=== PATIENT | female | born 1985 | race American Indian/Alaskan Native ===

== ENCOUNTER 2019-12-08 15:49 | Emergency (ER) | payer SELFPAY ==
[2019-12-08] MEDS ORDERED: SODIUM CHLORIDE 0.9% 1000 ML 1,000 ML IV ONE (16:34)
[2019-12-08] MEDS ORDERED: HYDROmorphone 1 MG/1 ML INJ IV ONE ×2 (16:34→18:06)
[2019-12-08] MEDS ORDERED: ONDANSETRON 4 MG/2 ML INJ IV ONE ×2 (16:34→18:06)
--- NOTE | 2019-12-08 16:34 | Emergency Department Report ---
ED Abdominal Pain HPI - General Chief Complaint: Abdominal Pain Stated Complaint: ABD PAIN/NAUSEA/VOMITING/DIARRHEA Time Seen by Provider: 12/08/19 16:11 Source: patient, EMS Mode of arrival: Stretcher Limitations: No Limitations - History of Present Illness Initial Comments: 34-year-old female with history of asthma, chronic pancreatitis, colitis, pres ents to ED with 5-day history of upper abdominal pain, vomiting, and diarrhea. Patient states this feels like an exacerbation of her chronic pancreatitis. Patient is from [place], here in [facility]. Patient states she hospitalization for pancreatitis and was discharged on October 28. Patient states she has been taking Zofran, Reglan, Bentyl, Carafate for her symptoms over the last 5 days, without relief. She denies any fever, cough, shortness of breath, known exposure to anyone who was tested positive for COVID-19. COVID-19 test done on 11/19/2019 was negative. Patient denies any alcohol use, states that she and her doctors are unsure of the cause of her pancreatitis. MD Complaint: abdominal pain -: days(s) (5) Location: LUQ, RUQ, epigastric Radiation: none Migration to: no migration Severity: moderate Quality: aching, sharp Consistency: constant Improves With: nothing Worsens With: eating Associated Symptoms: nausea, vomiting, diarrhea. denies: fever - Related Data Previous Rx's Medication Instructions Recorded Last Taken Type Ondansetron [Zofran Odt] 4 mg PO Q8HR PRN #20 tab.rapdis 12/08/19 Unknown Rx Promethazine [Phenergan TAB] 25 mg PO Q6HR PRN #20 tab 12/08/19 Unknown Rx traMADoL [Ultram] 50 mg PO Q6HR PRN #7 tablet 12/08/19 Unknown Rx Allergies Allergy/AdvReac Type Severity Reaction Status Date / Time acetaminophen [From Fioricet] Allergy Unknown Verified 12/08/19 18:37 butalbital [From Fioricet] Allergy Unknown Verified 12/08/19 18:37 caffeine [From Fioricet] Allergy Unknown Verified 12/08/19 18:37 ibuprofen Allergy Unknown Verified 12/08/19 18:37 ketorolac [From Toradol] Allergy Unknown Verified 12/08/19 18:37 prednisone Allergy Unknown Verified 12/08/19 18:37 sumatriptan [From Imitrex] Allergy Unknown Verified 12/08/19 18:37 ED Review of Systems ROS: Stated complaint: ABD PAIN/NAUSEA/VOMITING/DIARRHEA Other details as noted in HPI Comment: All other systems reviewed and negative Constitutional: denies: chills, fever Respiratory: denies: cough, shortness of breath Gastrointestinal: abdominal pain, nausea, vomiting, diarrhea ED Past Medical Hx - Past Medical History Previous Medical History?: Yes Hx Headaches / Migraines: Yes Hx Asthma: Yes Additional medical history: colitis. pancreatitis. ovarian cycts. c-diff (not active) - Surgical History Past Surgical History?: Yes Hx Cholecystectomy: Yes Additional Surgical History: ablasion. partial hysterectomy. tonsils and adnoids removed. right ovarian cyst - Social History Smoking Status: Current Every Day Smoker Substance Use Type: None - Medications Home Medications: Home Medications Medication Instructions Recorded Confirmed Last Taken Type Ondansetron [Zofran Odt] 4 mg PO Q8HR PRN #20 tab.rapdis 12/08/19 Unknown Rx Promethazine [Phenergan TAB] 25 mg PO Q6HR PRN #20 tab 12/08/19 Unknown Rx traMADoL [Ultram] 50 mg PO Q6HR PRN #7 tablet 12/08/19 Unknown Rx ED Physical Exam - General Limitations: No Limitations General appearance: alert, in no apparent distress - Head Head exam: Present: atraumatic, normocephalic - Eye Eye exam: Present: normal appearance, EOMI - ENT ENT exam: Present: mucous membranes moist - Neck Neck exam: Present: normal inspection - Respiratory Respiratory exam: Present: normal lung sounds bilaterally. Absent: respiratory distress - Cardiovascular Cardiovascular Exam: Present: regular rate, normal rhythm - GI/Abdominal GI/Abdominal exam: Present: soft, tenderness (RUQ, epigastric, LUQ). Absent: distended - Extremities Exam Extremities exam: Present: normal inspection - Neurological Exam Neurological exam: Present: alert, oriented X3 - Psychiatric Psychiatric exam: Present: normal affect, normal mood - Skin Skin exam: Present: warm, dry, intact, normal color ED Course Vital Signs 12/08/19 12/08/19 12/08/19 15:52 15:58 16:00 Temperature 98.3 F Pulse Rate 88 87 Respiratory 9 L 11 L Rate Blood Pressure 120/87 120/87 O2 Sat by Pulse 98 100 99 Oximetry 10/11/20 10/11/20 10/11/20 16:05 16:30 17:00 Temperature Pulse Rate 87 90 Respiratory 14 14 11 L Rate Blood Pressure 136/85 139/79 O2 Sat by Pulse 98 98 94 Oximetry 12/08/19 12/08/19 12/08/19 17:30 18:00 18:30 Temperature Pulse Rate 70 83 Respiratory 7 L 10 L Rate Blood Pressure 138/82 128/79 123/72 O2 Sat by Pulse 98 100 100 Oximetry 12/08/19 12/08/19 19:00 19:30 Temperature Pulse Rate 78 78 Respiratory 9 L 9 L Rate Blood Pressure 128/78 127/72 O2 Sat by Pulse 96 Oximetry ED Medical Decision Making - Lab Data Result diagrams: 12/08/19 16:20 12/08/19 16:20 - Radiology Data Radiology results: report reviewed, image reviewed - Medical Decision Making 34-year-old female presents to ED with abdominal pain, vomiting, diarrhea. Labs and CT scan essentially unremarkable, with CT scan showing some mild gastritis. Vital signs are stable. Patient feeling much better following IV fluids and medication. Will discharge home at this time. Outpatient follow-up advised. Return precautions given. - Differential Diagnosis Colitis, pancreatitis, gastroenteritis Critical care attestation.: If time is entered above; I have spent that time in minutes in the direct care of this critically ill patient, excluding procedure time. ED Disposition Clinical Impression: Acute gastroenteritis Disposition: DC-01 TO HOME OR SELFCARE Is pt being admited?: No Condition: Stable Instructions: Gastroenteritis (ED), Abdominal Pain (ED) Prescriptions: Promethazine [Phenergan TAB] 25 mg PO Q6HR PRN #20 tab PRN Reason: Nausea traMADoL [Ultram] 50 mg PO Q6HR PRN #7 tablet PRN Reason: Pain Ondansetron [Zofran Odt] 4 mg PO Q8HR PRN #20 tab.rapdis PRN Reason: Vomiting Referrals: PRIMARY CARE, [Primary Care Provider] - 3-5 Days [facility] [Provider Group] - as needed Time of Disposition: 19:10
[2019-12-08 16:46] LABS: Basophils % (Auto) 0.5 % (0.0-1.8); Eosinophils # (Auto) 0.3 K/mm3 (0.0-0.4); Eosinophils % (Auto) 3.9 % (0.0-4.3); Hemoglobin 13.1 gm/dl (10.1-14.3); Lymphocytes # (Auto) 2.6 K/mm3 (1.2-5.4); Lymphocytes % (Auto) 31.9 % (13.4-35.0); Mean Corpuscular HGB Conc 34 % (30-34); Mean Corpuscular Volume 87 fl (79-97); Monocytes # (Auto) 0.7 K/mm3 (0.0-0.8); Monocytes % (Auto) 8.7 % (0.0-7.3); Platelet Count 305 K/mm3 (140-440); Red Blood Count 4.46 M/mm3 (3.65-5.03); Red Cell Distribution Width 13.5 % (13.2-15.2)
[2019-12-08 17:02] LABS: Alanine Aminotransferase 20 units/L (7-56); Albumin 4.3 g/dL (3.9-5); BUN/Creatinine Ratio 12; Blood Urea Nitrogen 11 mg/dL (7-17); Calcium 9.1 mg/dL (8.4-10.2); Hemolysis Index 7
[2019-12-08 18:33] LABS: Bacteria,Urine 1+ /HPF (Negative); Bilirubin,Urine NEG (Negative); Blood,Urine SM (Negative); Color,Urine Yellow (Yellow); Mucus,Urine 1+ /HPF; Protein,Urine <15 mg/dL mg/dL (Negative); Urobilinogen,Urine < 2.0 mg/dL (<2.0)
[2019-12-08] MEDS ORDERED: LOPERAMIDE 2 MG CAP PO ONE (18:34)
[2019-12-08] MEDS ORDERED: LOPERAMIDE 2 MG CAP ONE (18:35)
--- NOTE | 2019-12-08 18:45 | Cat Scan Report ---
CT ABDOMEN AND PELVIS WITH IV CONTRAST INDICATION: Diffuse abdominal pain for the past 5 days COMPARISON: None available. TECHNIQUE: Axial CT images were obtained through the abdomen and pelvis after 100 mL IV contrast. All CT scans a t this location are performed using CT dose reduction for ALARA by means of automated exposure contro l. FINDINGS -- ABDOMEN: Lung Bases: No acute abnormality. Liver: Normal. Gallbladder: Removed. Bile Ducts: Normal. Pancreas: Normal. Spleen: Normal. Adrenals: Normal. Right Kidney and Proximal Ureter: Normal. Left Kidney and Proximal Ureter: Normal. Stomach and Bowel: Question mild increased prominence of the distal gastric mucosal folds.. Lymph Nodes: No significant adenopathy. Aorta: No significant abnormality. IVC: Normal. Additional Findings: None. FINDINGS -- PELVIS: Urinary Bladder and Distal Ureters: Normal. Reproductive Organs: No acute abnormality. Appendix: Normal. Bowel: No acute abnormality. Free Fluid: None. Lymph Nodes: No significant adenopathy. Additional Findings: None. Skeletal System: No acute abnormality. IMPRESSION: 1. Question mild gastritis. Otherwise, no acute process in the abdomen or pelvis. Signer Name: Ramon Robles MD Signed: 12/08/2019 6:40 PM Workstation Name: [id number]
[2019-12-08 19:39] VITALS: BP 127/72
== END 2019-12-08 19:50 | disposition home or self-care (01) ==
LOC: ED 15:49
DX: K52.9 Noninfective gastroenteritis and colitis, unspecified (principal); F17.200 Nicotine dependence, unspecified, uncomplicated; J45.909 Unspecified asthma, uncomplicated; G43.909 Migraine, unspecified, not intractable, without status migrainosus; Z79.899 Other long term (current) drug therapy; Z88.8 Allergy status to other drugs, medicaments and biological substances; Z88.6 Allergy status to analgesic agent; Z90.710 Acquired absence of both cervix and uterus; Z98.890 Other specified postprocedural states; Z90.49 Acquired absence of other specified parts of digestive tract
CPT/HCPCS: 36415; 74177; 80053; 81001; 83690; 84703; 85025; 96361; 96374; 96375; 96376; 99284; J1170; J2405; J7030; Q9967

== ENCOUNTER 2019-12-30 11:15 | Emergency (ER) | payer MEDICAID ==
[2019-12-30 11:21] VITALS: BP 132/76
--- NOTE | 2019-12-30 11:29 | Emergency Department Report ---
Blank Doc - Documentation Documentation: 34-year-old female that presents with abd pain with n/v. This initial assessment/diagnostic orders/clinical plan/treatment(s) is/are subject to change based on patient's health status, clinical progression and re- assessment by fellow clinical providers in the ED. Further treatment and workup at subsequent clinical providers discretion. Patient/guardians urged not to elope from the ED as their condition may be serious if not clinically assessed and managed. Initial orders include: 1- Patient sent to [facility] for further evaluation and treatment 2- labs 3- UA
[2019-12-30 12:28] LABS: Basophils % (Auto) 0.4 % (0.0-1.8); Eosinophils # (Auto) 0.3 K/mm3 (0.0-0.4); Eosinophils % (Auto) 3.7 % (0.0-4.3); Hematocrit 41.1 % (30.3-42.9); Hemoglobin 13.3 gm/dl (10.1-14.3); Lymphocytes # (Auto) 2.7 K/mm3 (1.2-5.4); Lymphocytes % (Auto) 37.3 % (13.4-35.0); Mean Corpuscular HGB Conc 32 % (30-34); Mean Corpuscular Volume 87 fl (79-97); Monocytes # (Auto) 0.4 K/mm3 (0.0-0.8); Monocytes % (Auto) 5.3 % (0.0-7.3); Platelet Count 314 K/mm3 (140-440); Red Blood Count 4.71 M/mm3 (3.65-5.03); Red Cell Distribution Width 13.6 % (13.2-15.2)
[2019-12-30 12:29] LABS: Alanine Aminotransferase 18 units/L (7-56); Albumin 4.5 g/dL (3.9-5); BUN/Creatinine Ratio 6; Blood Urea Nitrogen 6 mg/dL (7-17); Calcium 9.7 mg/dL (8.4-10.2); Hemolysis Index 0
[2019-12-30 14:07] LABS: Bilirubin,Urine NEG (Negative); Blood,Urine MOD (Negative); Color,Urine Yellow (Yellow); Mucus,Urine FEW /HPF; Protein,Urine <15 mg/dL mg/dL (Negative); Urobilinogen,Urine < 2.0 mg/dL (<2.0)
--- NOTE | 2019-12-30 14:17 | Emergency Department Report ---
ED Abdominal Pain HPI - General Chief Complaint: Abdominal Pain Stated Complaint: ABD PAIN/VOMITING Time Seen by Provider: 12/30/19 11:28 Source: patient Mode of arrival: Ambulatory Limitations: No Limitations - History of Present Illness Initial Comments: 34-year-old female presents to ED with complaint of 2-day history of abdominal pain. Patient reports associated nausea and vomiting. Patient reports history of pancreatitis and colitis. Patient states pain is located in diffuse abdomen. Patient was seen for similar complaints last month, patient states pain located in the same area as before. Patient states she has been taking tramadol at home for pain. She denies any fever or urinary symptoms. MD Complaint: abdominal pain -: days(s) (2) Location: diffuse Radiation: none Migration to: no migration Severity: moderate Quality: cramping Consistency: constant Improves With: nothing Worsens With: nothing Associated Symptoms: nausea, vomiting. denies: fever, dysuria - Related Data Previous Rx's Medication Instructions Recorded Last Taken Type Ondansetron [Zofran Odt] 4 mg PO Q8HR PRN #20 tab.rapdis 12/08/19 Unknown Rx Promethazine [Phenergan TAB] 25 mg PO Q6HR PRN #20 tab 12/08/19 Unknown Rx traMADoL [Ultram] 50 mg PO Q6HR PRN #7 tablet 12/08/19 Unknown Rx Dicyclomine [Bentyl] 20 mg PO QID PRN #20 tablet 12/30/19 Unknown Rx Ondansetron [Zofran Odt] 4 mg PO Q8HR PRN #20 tab.rapdis 12/30/19 Unknown Rx Allergies Allergy/AdvReac Type Severity Reaction Status Date / Time acetaminophen [From Fioricet] Allergy Unknown Verified 12/08/19 18:37 butalbital [From Fioricet] Allergy Unknown Verified 12/08/19 18:37 caffeine [From Fioricet] Allergy Unknown Verified 12/08/19 18:37 ibuprofen Allergy Unknown Verified 12/08/19 18:37 ketorolac [From Toradol] Allergy Unknown Verified 12/08/19 18:37 prednisone Allergy Unknown Verified 12/08/19 18:37 sumatriptan [From Imitrex] Allergy Unknown Verified 12/08/19 18:37 ED Review of Systems ROS: Stated complaint: ABD PAIN/VOMITING Other details as noted in HPI Comment: All other systems reviewed and negative Constitutional: denies: chills, fever Gastrointestinal: abdominal pain, nausea, vomiting. denies: diarrhea Genitourinary: denies: dysuria, frequency, hematuria, discharge ED Past Medical Hx - Past Medical History Previous Medical History?: Yes Hx Headaches / Migraines: Yes Hx Asthma: Yes Additional medical history: colitis. pancreatitis. ovarian cycts. c-diff (not active) - Surgical History Past Surgical History?: Yes Hx Cholecystectomy: Yes Additional Surgical History: ablasion. partial hysterectomy. tonsils and a dnoids removed. right ovarian cyst - Social History Smoking Status: Current Every Day Smoker Substance Use Type: None - Medications Home Medications: Home Medications Medication Instructions Recorded Confirmed Last Taken Type Ondansetron [Zofran Odt] 4 mg PO Q8HR PRN #20 tab.rapdis 12/08/19 Unknown Rx Promethazine [Phenergan TAB] 25 mg PO Q6HR PRN #20 tab 12/08/19 Unknown Rx traMADoL [Ultram] 50 mg PO Q6HR PRN #7 tablet 12/08/19 Unknown Rx Dicyclomine [Bentyl] 20 mg PO QID PRN #20 tablet 12/30/19 Unknown Rx Ondansetron [Zofran Odt] 4 mg PO Q8HR PRN #20 tab.rapdis 12/30/19 Unknown Rx ED Physical Exam - General Limitations: No Limitations General appearance: alert, in no apparent distress - Head Head exam: Present: atraumatic, normocephalic - Eye Eye exam: Present: normal appearance, EOMI - ENT ENT exam: Present: mucous membranes moist - Neck Neck exam: Present: normal inspection - Respiratory Respiratory exam: Present: normal lung sounds bilaterally. Absent: respiratory distress - Cardiovascular Cardiovascular Exam: Present: regular rate, normal rhythm - GI/Abdominal GI/Abdominal exam: Present: soft, tenderness (Mild suprapubic tenderness). Absent: distended - Extremities Exam Extremities exam: Present: normal inspection - Neurological Exam Neurological exam: Present: alert, oriented X3 - Psychiatric Psychiatric exam: Present: normal affect, normal mood - Skin Skin exam: Present: warm, dry, intact, normal color ED Course Vital Signs 12/30/19 11:20 Temperature 98.2 F Pulse Rate 86 Respiratory 18 Rate Blood Pressure 132/76 [Right] O2 Sat by Pulse 99 Oximetry ED Medical Decision Making - Lab Data Result diagrams: 12/30/19 11:44 12/30/19 11:44 - Medical Decision Making Patient seen for same approximately 3 weeks ago. Had a CT at that time that showed some questionable mild gastritis. Today, vitals are normal, labs are unremarkable. Will discharge at this time. Advised outpatient follow-up with gastroenterology. Return precautions given. - Differential Diagnosis Pancreatitis, colitis, UTI, chronic abdominal pain Critical care attestation.: If time is entered above; I have spent that time in minutes in the direct care of this critically ill patient, excluding procedure time. ED Disposition Clinical Impression: Abdominal pain Disposition: DC-01 TO HOME OR SELFCARE Is pt being admited?: No Condition: Stable Instructions: Abdominal Pain (ED) Prescriptions: Dicyclomine [Bentyl] 20 mg PO QID PRN #20 tablet PRN Reason: abdominal pain Ondansetron [Zofran Odt] 4 mg PO Q8HR PRN #20 tab.rapdis PRN Reason: Vomiting Referrals: PRIMARY CARE, [Primary Care Provider] - 3-5 Days [facility] [Provider Group] - 3-[address] [facility] [Provider Group] - 3-5 Days Time of Disposition: 14:19
[2019-12-30 14:26] LABS: HCG Qualitative,Urine Negative (Negative)
== END 2019-12-30 14:43 | disposition home or self-care (01) ==
LOC: ED 11:15
DX: R10.9 Unspecified abdominal pain (principal); G43.909 Migraine, unspecified, not intractable, without status migrainosus; J45.909 Unspecified asthma, uncomplicated; F17.200 Nicotine dependence, unspecified, uncomplicated; Z98.890 Other specified postprocedural states; Z79.899 Other long term (current) drug therapy; Z88.8 Allergy status to other drugs, medicaments and biological substances; Z88.6 Allergy status to analgesic agent; Z90.710 Acquired absence of both cervix and uterus; Z90.49 Acquired absence of other specified parts of digestive tract
CPT/HCPCS: 36415; 80053; 81001; 81025; 83690; 85025; 99283

== ENCOUNTER 2020-10-19 10:55 | Emergency (ER) | payer MEDICAID ==
[2020-10-19 11:49] LABS: Bilirubin,Urine NEG (Negative); Blood,Urine MOD (Negative); Calcium Oxalate Crystals,Urine 2+; Color,Urine Yellow (Yellow); Mucus,Urine 3+ /HPF
--- NOTE | 2020-10-19 12:18 | Emergency Department Report ---
Blank Doc - Documentation Documentation: 35-year-old female that presents with abdominal pain with n/v. 1- This is a initial triage assessment/medical screening only. Full assessment and work-up will be completed once the patient is in proper hospital gown, ED bed and in a private room setting. This initial assessment/diagnostic orders/clinical plan/ treatment(s) is/are subject to change based on pt's health status, clinical progression and re-assessment by fellow clinical providers in the ED. Further treatment and workup at subsequent clinical providers discretion. Patient/guardians urged not to elope from ED as their condition may be serious if not clinically assessed and managed. 2-labs 3-UA
[2020-10-19 14:25] LABS: Basophils # (Auto) 0.1 K/mm3 (0.0-0.1); Basophils % (Auto) 0.7 % (0.0-1.8); Eosinophils # (Auto) 0.2 K/mm3 (0.0-0.4); Eosinophils % (Auto) 2.7 % (0.0-4.3); Hemoglobin 13.5 gm/dl (10.1-14.3); Lymphocytes # (Auto) 2.4 K/mm3 (1.2-5.4); Mean Corpuscular HGB Conc 33 % (30-34); Mean Corpuscular Volume 87 fl (79-97); Monocytes # (Auto) 0.5 K/mm3 (0.0-0.8); Monocytes % (Auto) 5.6 % (0.0-7.3); Platelet Count 261 K/mm3 (140-440); Red Blood Count 4.71 M/mm3 (3.65-5.03); Red Cell Distribution Width 13.5 % (13.2-15.2)
[2020-10-19 14:38] LABS: Alanine Aminotransferase 10 units/L (7-56); Albumin 4.2 g/dL (3.9-5); BUN/Creatinine Ratio 9; Blood Urea Nitrogen 8 mg/dL (7-17); Hemolysis Index 8
[2020-10-19] MEDS ORDERED: ONDANSETRON 4 MG/2 ML INJ IV ONE (17:37)
[2020-10-19] MEDS ORDERED: HYDROmorphone 1 MG/1 ML INJ IV ONE ×2 (17:37→19:46)
[2020-10-19] MEDS ORDERED: LACTATED RINGERS 1,000 ML IV ONE (17:37)
[2020-10-19] MEDS ORDERED: POTASSIUM CHLORIDE ER 20 MEQ TAB PO ONE ×2 (17:37→20:31)
--- NOTE | 2020-10-19 17:42 | Emergency Department Report ---
ED General Adult HPI - General Chief complaint: Abdominal Pain Stated complaint: PANCREATITIS PUI?: No Time Seen by Provider: 10/19/20 11:19 Source: patient, EMS ( EMS documentation not available at time of chart dictatio n ), RN notes reviewed, old records reviewed Mode of arrival: Ambulatory Limitations: No Limitations - History of Present Illness Initial comments: The patient was evaluated in the emergency department for symptoms described in the history of present illness. He/she was evaluated in the context of the global COVID-19 pandemic, which necessitated consideration that the patient might be at risk for infection with the virus that causes COVID-19. Institutional protocols and algorithms that pertain to the evaluation of patients at risk for COVID-19 are in a state of rapid change based on information released by regulatory bodies including the CDC and federal and state organizations. These policies and algorithms were followed during the patient's care in the emergency department. Please note that these policies, procedures and recommendations changed on a rapid basis. The patient is a 35-year-old female. She has a history of pancreatitis (she believes that it is idiopathic but she is not sure), history of cholecystectomy last year, is not currently COVID-19 vaccinated. 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 Keenan Lundberg. The patient presents to the ER today with a complaint of epigastric pain that radiates around to her left upper quadrant. It started last night. This is associated with nausea and vomiting. It feels like prior episodes of pancreatitis. The patient denies cough, cold symptoms, diarrhea, alcohol use. She reports being admitted to [facility] emergency room 2 weeks ago, had a CT scan of her abdomen pelvis which reportedly showed "inflammation in the body and tail of the pancreas", and a lipase of approximately 150. She is supposed to follow-up with her food service kitchen supervisor in 2 days. She denies headache, neck pain, chest pain, lower abdominal pain, dysuria, loss of taste and smell. Her abdominal pain is sharp and throbbing, increases with palpation, decreases with rest and position, and it radiates to the back. Her presentation today feels similar to her prior episodes of pancreatitis. -: hour(s), days(s) Location: abdomen Radiation: back Quality: aching Improves with: medication (Benadryl with morphine), rest Worsens with: movement - Related Data Previous Rx's Medication Instructions Recorded Last Taken Type Ondansetron [Zofran Odt] 4 mg PO Q8HR PRN #20 tab.rapdis 12/08/19 Unknown Rx Promethazine [Phenergan TAB] 25 mg PO Q6HR PRN #20 tab 12/08/19 Unknown Rx Dicyclomine [Bentyl] 20 mg PO QID PRN #20 tablet 12/30/19 Unknown Rx Ondansetron [Zofran Odt] 4 mg PO Q8HR PRN #20 tab.rapdis 12/30/19 Unknown Rx Ezekiel Root [Ezekiel] 250 mg PO QID PRN #30 capsule 10/19/20 Unknown Rx Metoclopramide [Reglan] 10 mg PO QID PRN #30 tablet 10/19/20 Unknown Rx Morphine Sulfate [Morphine Sulfate 7.5 mg PO Q6HR PRN #10 tablet 10/19/20 Unknown Rx IR] Potassium Chloride [K-Dur] 20 meq PO BID #20 tab 10/19/20 Unknown Rx Promethazine [Phenergan SUPPOS] 50 mg ND Q6H PRN #10 supp.rect 10/19/20 Unknown Rx Allergies Allergy/AdvReac Type Severity Reaction Status Date / Time acetaminophen [From Fioricet] Allergy Unknown Verified 10/19/20 11:10 butalbital [From Fioricet] Allergy Unknown Verified 10/19/20 11:10 caffeine [From Fioricet] Allergy Unknown Verified 10/19/20 11:10 ibuprofen Allergy Unknown Verified 10/19/20 11:10 ketorolac [From Toradol] Allergy Unknown Verified 10/19/20 11:10 prednisone Allergy Unknown Verified 10/19/20 11:10 sumatriptan [From Imitrex] Allergy Unknown Verified 10/19/20 11:10 ED Review of Systems ROS: Stated complaint: PANCREATITIS Other details as noted in HPI Constitutional: malaise. denies: fever Eyes: denies: eye discharge ENT: denies: epistaxis Respiratory: denies: cough Cardiovascular: denies: chest pain Gastrointestinal: abdominal pain, nausea, vomiting. denies: diarrhea Genitourinary: denies: urgency, dysuria Musculoskeletal: back pain Neurological: weakness Hematological/Lymphatic: denies: easy bleeding ED Past Medical Hx - Past Medical History Hx of Cancer: Yes (OVARIAN) Hx Headaches / Migraines: Yes Hx Asthma: Yes Additional medical history: colitis. pancreatitis. ovarian cycts. c-diff (not active) - Surgical History Hx Cholecystectomy: Yes Additional Surgical History: ablasion. partial hysterectomy. tonsils and adnoids removed. right ovarian cyst - Social History Smoking Status: Current Every Day Smoker Substance Use Type: None - Medications Home Medications: Home Medications Medication Instructions Recorded Confirmed Last Taken Type Ondansetron [Zofran Odt] 4 mg PO Q8HR PRN #20 tab.rapdis 12/08/19 Unknown Rx Promethazine [Phenergan TAB] 25 mg PO Q6HR PRN #20 tab 12/08/19 Unknown Rx Dicyclomine [Bentyl] 20 mg PO QID PRN #20 tablet 12/30/19 Unknown Rx Ondansetron [Zofran Odt] 4 mg PO Q8HR PRN #20 tab.rapdis 12/30/19 Unknown Rx Ezekiel Root [Ezekiel] 250 mg PO QID PRN #30 capsule 10/19/20 Unknown Rx Metoclopramide [Reglan] 10 mg PO QID PRN #30 tablet 10/19/20 Unknown Rx Morphine Sulfate [Morphine Sulfate 7.5 mg PO Q6HR PRN #10 tablet 10/19/20 Unknown Rx IR] Potassium Chloride [K-Dur] 20 meq PO BID #20 tab 10/19/20 Unknown Rx Promethazine [Phenergan SUPPOS] 50 mg ND Q6H PRN #10 supp.rect 10/19/20 Unknown Rx ED Physical Exam - General Limitations: No Limitations General appearance: alert, obese - Head Head exam: Present: atraumatic, normocephalic - Eye Eye exam: Present: normal appearance, EOMI. Absent: nystagmus - ENT ENT exam: Present: normal exam, normal orophraynx, mucous membranes moist, normal external ear exam - Neck Neck exam: Present: normal inspection, full ROM. Absent: tenderness, meningismus - Respiratory Respiratory exam: Present: normal lung sounds bilaterally. Absent: respiratory distress, wheezes, rales, rhonchi, stridor, chest wall tenderness, accessory muscle use, decreased breath sounds - Cardiovascular Cardiovascular Exam: Present: regular rate, normal rhythm, normal heart sounds. Absent: bradycardia, tachycardia, irregular rhythm, systolic murmur, diastolic murmur, rubs, gallop - GI/Abdominal GI/Abdominal exam: Present: soft, tenderness, guarding, other (Epigastric tenderness and left upper quadrant tenderness. Voluntary guarding in the left upper quadrant.). Absent: distended, rebound, rigid, pulsatile mass - Extremities Exam Extremities exam: Present: normal inspection, full ROM, other (2+ pulses noted in the bilateral upper and lower extremities. There is no palpable cord. negative Homans sign. Muscular compartments are soft. The pelvis is stable.). Absent: pedal edema, calf tenderness - Back Exam Back exam: Present: normal inspection. Absent: tenderness, CVA tenderness (R), CVA tenderness (L), paraspinal tenderness, vertebral tenderness - Neurological Exam Neurological exam: Present: alert, oriented X3, other (No facial droop. Tongue midline. Extraocular movements intact bilaterally. Facial sensation intact to light touch in V1, V2, V3 distribution bilaterally. 5 and a 5 strength in 4 extremities. Sensation intact to light touch in 4 extremities.). Absent: motor sensory deficit - Psychiatric Psychiatric exam: Present: normal affect, normal mood - Skin Skin exam: Present: warm, dry, intact, normal color. Absent: rash ED Course Vital Signs 10/19/20 11:13 Temperature 99.1 F Pulse Rate 88 Respiratory 18 Rate Blood Pressure 131/81 O2 Sat by Pulse 98 Oximetry - Reevaluation(s) Reevaluation #1: 10/19/20 17:43 Differential diagnosis, included but not limited to: Pancreatitis, renal colic, GERD, gastritis, hiatal hernia Assessment and plan: 35-year-old female with a known history of pancreatitis, presenting with typical pancreatitis pain. She is found to have a lipase of 440. Laboratory studies otherwise unremarkable except for mild hypokalemia. We will treat the patient's symptoms, obtain EKG, and CT scan of the abdomen pelvis. We will replete her potassium. Reassess after initial data points. I discussed this plan of care with the patient. She is agreeable. 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 [id number] [facility] ([id number]) 0 30.0 [place] 10/04/2020 1 10/03/2020 HYDROCODONE-ACETAMIN 5-325 MG 8.0 2 DE LA [id number] [facility] (6967) 0 20.0 [place] 09/16/2020 6 09/15/2020 HYDROCODONE-ACETAMIN 5-325 MG 10.0 3 BE LEV [id number] [facility] (9101) 0 16.67 [place] 09/10/2020 6 09/09/2020 OXYCODONE-ACETAMINOPHEN 5-325 15.0 4 NI MAURIZIO [id number] [facility] (5004) 0 28.13 [place] 09/03/2020 2 09/03/2020 TRAMADOL HCL 50 MG TABLET 12.0 3 NI MOS [id number] [facility] (3481) 0 20.0 [place] 08/05/2020 3 08/05/2020 TRAMADOL HCL 50 MG TABLET 12.0 3 KE MARIANELA [id number] [facility] (8854) 0 20.0 [place] 07/20/2020 7 07/20/2020 TRAMADOL HCL 50 MG TABLET 20.0 6 KUR [id number] [facility] (9110) 0 16.67 [place] 07/16/2020 3 07/16/2020 ACETAMINOPHEN-COD #3 TABLET 12.0 3 DA ZHO [id number] [facility] (0968) 0 18.0 [place] 06/18/2020 3 06/18/2020 TRAMADOL HCL 50 MG TABLET 20.0 10 ER AMU [id number] [facility] (3381) 0 10.0 [place] 06/11/2020 5 06/11/2020 HYDROCODONE-ACETAMIN 5-325 MG 6.0 1 JE MAS [id number] [facility] (6159) 0 30.0 [place] 06/06/2020 3 06/05/2020 TRAMADOL HCL 50 MG TABLET 9.0 3 SO VIDAL [id number] [facility] (5600) 0 15.0 [place] 05/28/2020 3 05/28/2020 TRAMADOL HCL 50 MG TABLET 10.0 3 PR CLA [id number] [facility] (0809) 0 16.67 [place] 05/21/2020 3 05/21/2020 OXYCODONE-ACETAMINOPHEN 5-325 12.0 3 RO SIN [id number] [facility] (8595) 0 30.0 [place] 05/13/2020 3 05/13/2020 OXYCODONE HCL 5 MG TABLET 12.0 3 MA OWU [id number] [facility] (8595) 0 30.0 [place] 05/06/2020 3 04/30/2020 TRAMADOL HCL 50 MG TABLET 20.0 5 CH OKO [id number] [facility] (8595) 1 20.0 [place] 04/30/2020 3 04/30/2020 TRAMADOL HCL 50 MG TABLET 40.0 10 CH OKO [id number] [facility] (8595) 0 20.0 [place] 04/30/2020 3 04/30/2020 DIPHENOXYLATE-ATROP 2.5-0.025 30.0 8 CH OKO [id number] [facility] (8595) 0 0.0 [place] 04/28/2020 3 04/27/2020 ACETAMINOPHEN-COD #3 TABLET 5.0 1 RI KWO [id number] [facility] (8595) 0 22.5 [place] 04/23/2020 6 04/23/2020 TRAMADOL HCL 50 MG TABLET 10.0 2 GODFREY DARWIN [id number] [facility] (1657) 0 25.0 [place] 04/20/2020 3 04/20/2020 TRAMADOL HCL 50 MG TABLET 12.0 3 SO PEL [id number] [facility] (8595) 0 20.0 [place] 04/14/2020 3 03/09/2020 TRAMADOL HCL 50 MG TABLET 30.0 7 CH OKO [id number] [facility] (6148) 0 21.43 [place] 03/31/2020 3 03/09/2020 TRAMADOL HCL 50 MG TABLET 60.0 15 CH OKO [id number] [facility] (8595) 2 20.0 [place] 03/28/2020 6 03/28/2020 ACETAMINOPHEN-COD #2 TABLET 18.0 3 GODFREY MARBELLA [id number] [facility] (7061) 0 13.5 [place] 03/22/2020 3 03/22/2020 TRAMADOL HCL 50 MG TABLET 12.0 3 LENA AHUMADA [id number] [facility] (6416) 0 20.0 [place] 03/20/2020 6 03/20/2020 ACETAMINOPHEN-COD #3 TABLET 12.0 3 SACHI BALL [id number] [facility] (6419) 0 18.0 [place] 03/16/2020 3 03/09/2020 TRAMADOL HCL 50 MG TABLET 60.0 15 CH OKO [id number] [facility] (8595) 1 20.0 [place] 03/09/2020 3 03/09/2020 TRAMADOL HCL 50 MG TABLET 30.0 8 CH OKO [id number] [facility] (8595) 0 18.75 [place] 03/04/2020 4 03/04/2020 TRAMADOL HCL 50 MG TABLET 12.0 3 JE BUS [id number] [facility] (1613) 0 20.0 [place] 02/26/2020 4 02/25/2020 TRAMADOL HCL 50 MG TABLET 12.0 3 BE LEF [id number] [facility] (7847) 0 20.0 [place] 02/06/2020 3 02/06/2020 ACETAMINOPHEN-COD #3 TABLET 12.0 3 AN HILARIO [id number] [facility] (8595) 0 18.0 [place] 01/27/2020 3 01/27/2020 TRAMADOL HCL 50 MG TABLET 28.0 7 CH OKO [id number] [facility] (2188) 0 20.0 [place] 01/17/2020 3 01/17/2020 TRAMADOL HCL 50 MG TABLET 14.0 7 CH JOSE [id number] [facility] (8595) 0 10.0 [place] 01/09/2020 3 01/09/2020 TRAMADOL HCL 50 MG TABLET 14.0 7 SA JAB [id number] [facility] (1594) 0 10.0 [place] 12/19/2019 3 12/18/2019 TRAMADOL HCL 50 MG TABLET 45.0 23 MY NWE [id number] [facility] (8595) 0 9.78 [place] 12/10/2019 4 12/08/2019 TRAMADOL HCL 50 MG TABLET 7.0 1 TH GUN [id number] [facility] (6547) 0 35.0 [place] 11/22/2019 10 11/22/2019 TRAMADOL HCL 50 MG TABLET 45.0 23 MY NWE [id number] [facility] (0572) 0 Private Pay [place] 11/18/2019 8 11/18/2019 HYDROCODONE-CHLORPHEN ER SUSP 30.0 3 MY NWE [id number] [facility] (7243) 0 [place] 11/12/2019 9 11/12/2019 TRAMADOL HCL 50 MG TABLET 6.0 3 GODFREY COL [id number] [facility] (6193) 0 [place] Ins [place] 10/30/2019 8 10/30/2019 TRAMADOL HCL 50 MG TABLET 25.0 12 MY NWE [id number] [facility] (0533) 0 [place] 10/29/2019 8 10/29/2019 OXYCODONE-ACETAMINOPHEN 5-325 15.0 5 [facility] [id number] [facility] (6361) 0 Medicaid [place] *Pharmacy is created using a combination of pharmacy name and the last four digits of the pharmacy license number. *Per CDC guidance, the MME conversion factors prescribed or provided as part of medication-assisted treatment for opioid use disorder should not be used to abelardo chmark against dosage thresholds meant for opioids prescribed for pain. Buprenorphine products have no agreed upon morphine equivalency, and as partial opioid agonists, are not expected to be associated with overdose risk in the same dose-dependent manner as doses for full agonist opioids. MME = morphine milligram equivalents. mg = dose in milligrams. Prescribers Name Address [facility] Zip Phone ANNE-MARIE ACKERMAN, MSN,CHILDREN'S NURSERY ASSISTANT,CAR DRYER [address] [facility] [address] [facility] [id number] SULTANA GLEZ PA-C [address] [place] [address] [facility] [address] TYLER BISHOP 4550 [facility] [address] [facility] 1170 [facility] [id number] ALEJANDRO KEEN MD 1255 [facility] [address] W [facility] [id number] [phone] WALESKA DIXON 222 [facility] [address] JANICE BARNES MD 677 [facility] [address] MOHIT RAMIREZ 5615 [facility] [id number] ELINOR KHOURY MD [address] [place] [address] YUE LLOYD 5615 [place] [address] ALANNAH FERRERA M.D. [address] [place] [address] KATIE BURNETT 1020 [place] [address] BRANDON DAVIS MD [address] [place] [address] ALANNAH AHUMADA MD [address] [place] [address] ARIC MILLAN MD 677 [facility] [address] EUSEBIO Bry CRUZ [address] [place] [address] ANA ALANIZ MD 677 [facility] [address] SADIE SHELTON 677 [facility] [address] AZAEL KWAN [address] [place] [address] AZAEL SORTO MD 677 [facility] [address] ANDRES BARR MD [address] [facility] [address] TANISHA MAYNARD MD [address] [place] [address] RATNA JULIANNA [address] [address] LUIS FERNANDO M NWE [address] [facility] [address] LUIS FERNANDO NWE [address] ERIKA 100 [facility] [address] GUILLERMO ARGUETA MD 1151 [facility] [address] [phone] CARLOS SCOTT MD [address] [facility] [address] SRAVANTHI CORDOVA D.O. [address] [facility] [address] KESHIA LAZARO MD [address] [place] [address] JOE AGUAYO [address] [facility] [address] [phone] KARIE GLEZ [address] [place] [address] [facility] Address City State Zip Phone [facility] [phone] [facility] [address] [phone] [facility] [address] [facility] 103401 [phone] [facility] [address] [facility] 100876 [phone] [facility] [address] [place] [phone]) [phone] [facility] [address] [place] [phone]) [phone] [facility] [address] [place] [phone]) [phone] [facility] [address] [phone] [place] ([phone]) [phone] [facility] [address] [facility] [phone] [facility] [address] [facility] [phone] [facility] [id number] [facility] [phone] [address] [facility] [address] [facility] [phone] [facility] [address] [facility] [phone] [facility] [address] [facility] [phone] [facility] [address] [facility] [phone] [facility] [address] Reevaluation #3: 10/19/20 19:36 CT scan abdomen pelvis negative for acute findings. Patient has follow-up with her food service kitchen supervisor in 2 days. Karyna MAINTENANCE MACHINE REPAIRER reviewed and appreciated. Have not witnessed any active nausea or vomiting. We will discharged with low-dose morphine sulfate as needed pain, as needed Reglan, ezekiel, Phenergan, potassium, return precautions are reviewed. 10/19/20 19:46 Have not witnessed any active nausea and vomiting. Supervisor Dry Cell [employer]/nursing staff indicate they have not witnessed any nausea or vomiting. On my final reassessment the patient is playing on her cell phone. Belly is improved on exam. Discussed recommendations with patient. She has articulated understanding. She requests additional pain medication prior to discharge. This is reasonable. We will medicate and discharge. Return precautions are reviewed. All questions answered. ED Medical Decision Making - Lab Data Result diagrams: 10/19/20 13:46 10/19/20 13:46 Vital Signs 10/19/20 11:13 Temperature 99.1 F Pulse Rate 88 Respiratory 18 Rate Blood Pressure 131/81 O2 Sat by Pulse 98 Oximetry Lab Results 10/19/20 10/19/20 10/19/20 Range/Units 13:46 13:46 13:46 WBC 8.1 (4.5-11.0) K/mm3 RBC 4.71 (3.65-5.03) M/mm3 Hgb 13.5 (10.1-14.3) gm/dl Hct 41.0 (30.3-42.9) % MCV 87 (79-97) fl MCH 29 (28-32) pg MCHC 33 (30-34) % RDW 13.5 (13.2-15.2) % Plt Count 261 (140-440) K/mm3 Lymph % (Auto) 29.0 (13.4-35.0) % [place] % (Auto) 5.6 (0.0-7.3) % Eos % (Auto) 2.7 (0.0-4.3) % Baso % (Auto) 0.7 (0.0-1.8) % Lymph # (Auto) 2.4 (1.2-5.4) K/mm3 [place] # (Auto) 0.5 (0.0-0.8) K/mm3 Eos # (Auto) 0.2 (0.0-0.4) K/mm3 Baso # (Auto) 0.1 (0.0-0.1) K/mm3 Seg Neutrophils % 62.0 (40.0-70.0) % Seg Neutrophils # 5.1 (1.8-7.7) K/mm3 Sodium 141 (137-145) mmol/L Potassium 3.3 L (3.6-5.0) mmol/L Chloride 105.3 (98-107) mmol/L Carbon Dioxide 25 (22-30) mmol/L Anion Gap 14 mmol/L BUN 8 (7-17) mg/dL Creatinine 0.9 (0.6-1.2) mg/dL Estimated GFR > 60 ml/min BUN/Creatinine Ratio 9 % Glucose 91 (65-100) mg/dL Calcium 9.0 (8.4-10.2) mg/dL Total Bilirubin < 0.20 (0.1-1.2) mg/dL AST 10 (5-40) units/L ALT 10 (7-56) units/L Alkaline Phosphatase 51 (35-129) units/L Total Protein 6.5 (6.3-8.2) g/dL Albumin 4.2 (3.9-5) g/dL Albumin/Globulin Ratio 1.8 % Lipase 448 H (13-60) units/L HCG, Qual Negative (Negative) Urine Color (Yellow) Urine Turbidity (Clear) Urine pH (5.0-7.0) Ur Specific [place] (1.003-1.030) Urine Protein (Negative) mg/dL Urine Glucose (UA) (Negative) mg/dL Urine Ketones (Negative) mg/dL Urine Blood (Negative) Urine Nitrite (Negative) Urine Bilirubin (Negative) Urine Urobilinogen (<2.0) mg/dL Ur Leukocyte Esterase (Negative) Urine WBC (Auto) (0.0-6.0) /HPF Urine RBC (Auto) (0.0-6.0) /HPF U Epithel Cells (Auto) (0-13.0) /HPF Calcium Oxalate Crystal Urine Mucus /HPF 10/19/20 Range/Units Unknown WBC (4.5-11.0) K/mm3 RBC (3.65-5.03) M/mm3 Hgb (10.1-14.3) gm/dl Hct (30.3-42.9) % MCV (79-97) fl MCH (28-32) pg MCHC (30-34) % RDW (13.2-15.2) % Plt Count (140-440) K/mm3 Lymph % (Auto) (13.4-35.0) % [place] % (Auto) (0.0-7.3) % Eos % (Auto) (0.0-4.3) % Baso % (Auto) (0.0-1.8) % Lymph # (Auto) (1.2-5.4) K/mm3 [place] # (Auto) (0.0-0.8) K/mm3 Eos # (Auto) (0.0-0.4) K/mm3 Baso # (Auto) (0.0-0.1) K/mm3 Seg Neutrophils % (40.0-70.0) % Seg Neutrophils # (1.8-7.7) K/mm3 Sodium (137-145) mmol/L Potassium (3.6-5.0) mmol/L Chloride (98-107) mmol/L Carbon Dioxide (22-30) mmol/L Anion Gap mmol/L BUN (7-17) mg/dL Creatinine (0.6-1.2) mg/dL Estimated GFR ml/min BUN/Creatinine Ratio % Glucose (65-100) mg/dL Calcium (8.4-10.2) mg/dL Total Bilirubin (0.1-1.2) mg/dL AST (5-40) units/L ALT (7-56) units/L Alkaline Phosphatase (35-129) units/L Total Protein (6.3-8.2) g/dL Albumin (3.9-5) g/dL Albumin/Globulin Ratio % Lipase (13-60) units/L HCG, Qual (Negative) Urine Color Yellow (Yellow) Urine Turbidity Slightly-cloudy (Clear) Urine pH 5.0 (5.0-7.0) Ur Specific [place] 1.030 (1.003-1.030) Urine Protein 30 mg/dl (Negative) mg/dL Urine Glucose (UA) Neg (Negative) mg/dL Urine Ketones Neg (Negative) mg/dL Urine Blood Mod (Negative) Urine Nitrite Neg (Negative) Urine Bilirubin Neg (Negative) Urine Urobilinogen 2.0 (<2.0) mg/dL Ur Leukocyte Esterase Neg (Negative) Urine WBC (Auto) 2.0 (0.0-6.0) /HPF Urine RBC (Auto) 26.0 (0.0-6.0) /HPF U Epithel Cells (Auto) 2.0 (0-13.0) /HPF Calcium Oxalate Crystal 2+ Urine Mucus 3+ /HPF - EKG Data -: EKG Interpreted by Me EKG shows normal: sinus rhythm Rate: normal - EKG Data When compared to previous EKG there are: previous EKG unavailable 10/19/20 17:53 EKG interpreted at 17: 44 Sinus rhythm, 81 bpm. Normal P wave axis. Left axis deviation. Left anterior fascicular block. Poor R wave progression, and high left ventricular voltage. Abnormal EKG. Not a STEMI. No prior for comparison. - Radiology Data Radiology results: pending, report reviewed, image reviewed interpreted by me: CT ABDOMEN AND PELVIS WITH CONTRAST INDICATION / CLINICAL INFORMATION: luq abd pain OMNI 300 100 ML. TECHNIQUE: Axial CT images were obtained through the abdomen and pelvis after 100 cc of Omnipaque [address] scans at this location are performed using CT dose reduction for ALARA by means of automa george exposure control. COMPARISON: CT scan dated 12/08/2019 FINDINGS: LOWER CHEST: No significant abnormality. LIVER: There is fatty infiltration of the liver GALLBLADDER: Cholecystectomy. BILE DUCTS: No significant abnormality. PANCREAS: No significant abnormality. SPLEEN: No significant abnormality. ADRENALS: No significant abnormality. RIGHT KIDNEY / URETER: No significant abnormality. LEFT KIDNEY / URETER: No significant abnormality. STOMACH / SMALL BOWEL: No significant abnormality. COLON: No significant abnormality. APPENDIX: No significant abnormality. PERITONEUM: No free fluid. No free air. No fluid collection. LYMPH NODES: No significant adenopathy. AORTA / ARTERIES: No significant abnormality. IVC / VEINS: No significant abnormality. URINARY BLADDER: No significant abnormality. REPRODUCTIVE ORGANS: Prior hysterectomy. There is a 3.9 cm cyst in the left ovary. ADDITIONAL FINDINGS: None. SKELETAL SYSTEM: No significant abnormality. IMPRESSION: 1. There is a 3.9 cm left o varian cyst. 2. There is fatty infiltration of the liver. 3. There is no obstruction, inflammation, or free air. There are no abnormal fluid collections. Signer Name: Dimas Allen MD Signed: 10/19/2020 6:04 PM Workstation Name: [email or web address] Critical care attestation.: If time is entered above; I have spent that time in minutes in the direct care of this critically ill patient, excluding procedure time. ED Disposition Clinical Impression: Hypokalemia, COVID-19 vaccination not done, Epigastric abdominal pain, Elevated lipase Disposition: HOME / SELF CARE / HOMELESS Is pt being admited?: No Does the pt Need Aspirin: No Condition: Good Instructions: Acute Pancreatitis, Abdominal Pain (ED) Additional Instructions: Please follow-up with your food service kitchen supervisor Dr. Lundberg in 2 days as scheduled. Do not take metformin medication for the next 2 days, if patient takes this medication. Patient likely has mild pancreatitis, manifest by elevated lipase. CT scan of the abdomen pelvis today did not demonstrate any condition that would require emergent surgical intervention, or admission to the hospital. Please have your primary care doctor or GI physician contact our medical records department to obtain copies of laboratory studies, radiology studies, to follow- up on nonemergent incidental findings. Advance diet as tolerated, drink plenty of fluids, when ready for food, start with bread, rice, apples and toast. Avoid heavy and spicy foods. Avoid caffeine, coffee, tea, and energy drinks. Use the morphine sulfate as needed for breakthrough pain. Use the ezekiel tablets and Reglan tablets as needed for nausea and vomiting. Use the Phenergan suppositories as needed for intractable nausea and vomiting. Avoid consumption of heavy and spicy food. Please return to the emergency room right away with new pain, worsened pain, migration of pain, projectile vomiting, change in mental status, confusion, inability to tolerate liquid feeds, new, worsened or different symptoms not present on the initial emergency room evaluation. Prescriptions: Ezekiel Root [Ezekiel] 250 mg PO QID PRN #30 capsule PRN Reason: Nausea Potassium Chloride [K-Dur] 20 meq PO BID #20 tab Morphine Sulfate [Morphine Sulfate IR] 7.5 mg PO Q6HR PRN #10 tablet PRN Reason: Pain , Severe (7-10) Promethazine [Phenergan SUPPOS] 50 mg ND Q6H PRN #10 supp.rect PRN Reason: Pain , Severe (7-10) Metoclopramide [Reglan] 10 mg PO QID PRN #30 tablet PRN Reason: Nausea Referrals: [facility] [Provider Group] - 3-5 Days Forms: Work/School Release Form(ED)
--- NOTE | 2020-10-19 19:09 | Cat Scan Report ---
CT ABDOMEN AND PELVIS WITH CONTRAST INDICATION / CLINICAL INFORMATION: luq abd pain OMNI 300 100 ML. TECHNIQUE: Axial CT images were obtained through the abdomen and pelvis after 100 cc of Omnipaque [address] scans at this location are performed using CT dose reduction for ALARA by means of automated exposure control. COMPARISON: CT scan dated 12/08/2019 FINDINGS: LOWER CHEST: No significant abnormality. LIVER: There is fatty infiltration of the liver GALLBLADDER: Cholecystectomy. BILE DUCTS: No significant abnormality. PANCREAS: No significant abnormality. SPLEEN: No significant abnormality. ADRENALS: No significant abnormality. RIGHT KIDNEY / URETER: No significant abnormality. LEFT KIDNEY / URETER: No significant abnormality. STOMACH / SMALL BOWEL: No significant abnormality. COLON: No significant abnormality. APPENDIX: No significant abnormality. PERITONEUM: No free fluid. No free air. No fluid collection. LYMPH NODES: No significant adenopathy. AORTA / ARTERIES: No significant abnormality. IVC / VEINS: No significant abnormality. URINARY BLADDER: No significant abnormality. REPRODUCTIVE ORGANS: Prior hysterectomy. There is a 3.9 cm cyst in the left ovary. ADDITIONAL FINDINGS: None. SKELETAL SYSTEM: No significant abnormality. IMPRESSION: 1. There is a 3.9 cm left ovarian cyst. 2. There is fatty infiltration of the liver. 3. There is no obstruction, inflammation, or free air. There are no abnormal fluid collections. Signer Name: Dimas Allen MD Signed: 10/19/2020 7:04 PM Workstation Name: [id number]
[2020-10-19 20:09] VITALS: BP 112/54
--- NOTE | 2020-10-20 10:20 | Electrocardiograph Report ---
[facility] Test Date: 2020-10-19 Test Time: 17:44:52 Pat Name: JORGE A SANTOS Department: Room: Gender: F Head Counselor: ROLAND : 1985 Requested By: KEENAN XAVIER Order Number: [id number] Reading MD: Alfonso Rodriguez Measurements Intervals [place] Rate: 81 P: 68 VT: 178 QRS: -5 QRSD: 94 T: 44 QT: 394 QTc: 458 Interpretive Statements Sinus rhythm No previous ECG available for comparison Electronically Signed On 10-20-2020 10:20:04 EDT by Alfonso Rodriguez
== END 2020-10-19 22:50 | disposition home or self-care (01) ==
LOC: ED 10:55
DX: E87.6 Hypokalemia (principal); R10.13 Epigastric pain; L74.8 Other eccrine sweat disorders; Z85.9 Personal history of malignant neoplasm, unspecified; G43.909 Migraine, unspecified, not intractable, without status migrainosus; J45.909 Unspecified asthma, uncomplicated; K52.9 Noninfective gastroenteritis and colitis, unspecified; N83.209 Unspecified ovarian cyst, unspecified side; Z98.890 Other specified postprocedural states; F17.200 Nicotine dependence, unspecified, uncomplicated; Z88.1 Allergy status to other antibiotic agents; Z88.5 Allergy status to narcotic agent; Z88.6 Allergy status to analgesic agent; Z88.8 Allergy status to other drugs, medicaments and biological substances
CPT/HCPCS: 36415; 74177; 80053; 81001; 83690; 83735; 84484; 84703; 85025; 93005; 96361; 96374; 96375; 99284; J1170; J2405; J7120; Q9967

== ENCOUNTER 2021-04-18 23:53 | Emergency (ER) | payer MEDICAID ==
[2021-04-19] MEDS ORDERED: ONDANSETRON 4 MG/2 ML INJ IV ONE ×2 (00:17→03:09)
[2021-04-19] MEDS ORDERED: diphenhydrAMINE 50 MG/ML VIAL IV ONE (00:17)
[2021-04-19] MEDS ORDERED: HYDROmorphone 1 MG/1 ML INJ IV ONE ×2 (00:17→03:09)
[2021-04-19] MEDS ORDERED: METOCLOPRAMIDE 10 MG/2 ML INJ IV ONE (00:17)
[2021-04-19] MEDS ORDERED: SODIUM CHLORIDE 0.9% 1000 ML 1,000 ML IV ONE ×3 (00:17→04:59)
--- NOTE | 2021-04-19 00:19 | Emergency Department Report ---
ED N/V/D HPI - General Chief complaint: Nausea/Vomiting/Diarrhea Stated complaint: VOMITING AND ABDOMINAL PAIN Time Seen by Provider: 04/19/21 00:08 Source: EMS, old records reviewed Mode of arrival: Stretcher Limitations: No Limitations - History of Present Illness Initial comments: 35-year-old female with a past medical history of recurrent pancreatitis, repeated ER visits in the past with nausea, vomiting, abdominal pain, chronic narcotic use, and recent diagnosis of right ovarian cancer 1 month ago presents to the hospital with nausea, vomiting, diarrhea abdominal pain, p.o. intolerance after receiving her first chemotherapy treatment today. Patient states pain is severe and worse with palpation. No alleviating factors reported. Yellow vo mitus at the bedside. Patient's previous surgical history includes cholecystectomy and right oophorectomy. She also is chronically on oxycodone 10 mg but but has not had any in 2 days because she cannot find a pharmacy that has it in stock. Patient does not currently have a port but states she is scheduled for port tomorrow. - Related Data Previous Rx's Medication Instructions Recorded Last Taken Type Ondansetron [Zofran Odt] 4 mg PO Q8HR PRN #20 tab.rapdis 12/08/19 Unknown Rx Promethazine [Phenergan TAB] 25 mg PO Q6HR PRN #20 tab 12/08/19 Unknown Rx Dicyclomine [Bentyl] 20 mg PO QID PRN #20 tablet 12/30/19 Unknown Rx Ondansetron [Zofran Odt] 4 mg PO Q8HR PRN #20 tab.rapdis 12/30/19 Unknown Rx Tiny Root [Tiny] 250 mg PO QID PRN #30 capsule 10/19/20 Unknown Rx Metoclopramide [Reglan] 10 mg PO QID PRN #30 tablet 10/19/20 Unknown Rx Morphine Sulfate [Morphine Sulfate 7.5 mg PO Q6HR PRN #10 tablet 10/19/20 Unknown Rx IR] Potassium Chloride [K-Dur] 20 meq PO BID #20 tab 10/19/20 Unknown Rx Promethazine [Phenergan SUPPOS] 50 mg NC Q6H PRN #10 supp.rect 10/19/20 Unknown Rx cefUROXime [Ceftin] 500 mg PO Q12H 7 Days 04/19/21 Unknown Rx Allergies Allergy/AdvReac Type Severity Reaction Status Date / Time acetaminophen [From Fioricet] Allergy Unknown Verified 10/19/20 11:10 butalbital [From Fioricet] Allergy Unknown Verified 10/19/20 11:10 caffeine [From Fioricet] Allergy Unknown Verified 10/19/20 11:10 ibuprofen Allergy Unknown Verified 10/19/20 11:10 ketorolac [From Toradol] Allergy Unknown Verified 10/19/20 11:10 prednisone Allergy Unknown Verified 10/19/20 11:10 sumatriptan [From Imitrex] Allergy Unknown Verified 10/19/20 11:10 midazolam [From Versed] AdvReac Hives Verified 04/19/21 00:03 ED Review of Systems ROS: Stated complaint: VOMITING AND ABDOMINAL PAIN Other details as noted in HPI Comment: All other systems reviewed and negative ED Past Medical Hx - Past Medical History Hx Headaches / Migraines: Yes Hx Asthma: Yes Additional medical history: colitis. pancreatitis. ovarian cycts. c-diff (not active) - Surgical History Hx Cholecystectomy: Yes Additional Surgical History: ablasion. partial hysterectomy. tonsils and adnoids removed. right ovarian cyst - Social History Smoking Status: Current Every Day Smoker Substance Use Type: None - Medications Home Medications: Home Medications Medication Instructions Recorded Confirmed Last Taken Type Ondansetron [Zofran Odt] 4 mg PO Q8HR PRN #20 tab.rapdis 12/08/19 Unknown Rx Promethazine [Phenergan TAB] 25 mg PO Q6HR PRN #20 tab 12/08/19 Unknown Rx Dicyclomine [Bentyl] 20 mg PO QID PRN #20 tablet 12/30/19 Unknown Rx Ondansetron [Zofran Odt] 4 mg PO Q8HR PRN #20 tab.rapdis 12/30/19 Unknown Rx Tiny Root [Tiny] 250 mg PO QID PRN #30 capsule 10/19/20 Unknown Rx Metoclopramide [Reglan] 10 mg PO QID PRN #30 tablet 10/19/20 Unknown Rx Morphine Sulfate [Morphine Sulfate 7.5 mg PO Q6HR PRN #10 tablet 10/19/20 Unknown Rx IR] Potassium Chloride [K-Dur] 20 meq PO BID #20 tab 10/19/20 Unknown Rx Promethazine [Phenergan SUPPOS] 50 mg NC Q6H PRN #10 supp.rect 10/19/20 Unknown Rx cefUROXime [Ceftin] 500 mg PO Q12H 7 Days 04/19/21 Unknown Rx ED Physical Exam - General Limitations: No Limitations - Other Other exam information: General: Moderate distress, actively via Head: Atraumatic Eyes: normal appearance ENT: Moist mucous membranes Neck: Normal appearance, no midline tenderness Chest: Clear to auscultation bilaterally CV: Regular rate and rhythm Abdomen: Soft, normal bowel sounds, generalized abdominal pain greatest in epigastric, nondistended, no rebound or guarding, yellow vomitus at the bedside Back: Normal inspection Extremity: Normal inspection, full range of motion Neuro: Alert O x 3, no facial asymmetry, speech clear, no gross motor sensory deficit Psych: Appropriate behavior Skin: No rash ED Course Vital Signs 04/19/21 04/19/21 04/19/21 00:25 00:30 00:45 Temperature 97.7 F Pulse Rate 75 Respiratory 14 14 18 Rate Blood Pressure 142/93 [Left] O2 Sat by Pulse 100 99 Oximetry 04/19/21 04/19/21 04/19/21 01:15 03:36 04:06 Temperature Pulse Rate Respiratory 18 18 18 Rate Blood Pressure [Left] O2 Sat by Pulse Oximetry - EJ/Peripheral Line Neck L Time Out Performed: Yes Indications: nurses unable to establis Skin Cleansed in Sterile Fashion: Yes Size: 20 Dressing Placed: Tegaderm Patient Tolerated Procedure: well, no complications ED Medical Decision Making - Lab Data Result diagrams: 04/19/21 00:25 04/19/21 00:25 Lab Results 04/19/21 04/19/21 04/19/21 Range/Units 00:25 00:25 00:25 WBC 14.4 H (4.5-11.0) K/mm3 RBC 5.14 H (3.65-5.03) M/mm3 Hgb 15.1 H (10.1-14.3) gm/dl Hct 44.0 H (30.3-42.9) % MCV 86 (79-97) fl MCH 29 (28-32) pg MCHC 34 (30-34) % RDW 13.4 (13.2-15.2) % Plt Count 366 (140-440) K/mm3 Lymph % (Auto) 14.7 (13.4-35.0) % [place] % (Auto) 4.2 (0.0-7.3) % Eos % (Auto) 0.1 (0.0-4.3) % Baso % (Auto) 0.2 (0.0-1.8) % Lymph # (Auto) 2.1 (1.2-5.4) K/mm3 [place] # (Auto) 0.6 (0.0-0.8) K/mm3 Eos # (Auto) 0.0 (0.0-0.4) K/mm3 Baso # (Auto) 0.0 (0.0-0.1) K/mm3 Seg Neutrophils % 80.8 H (40.0-70.0) % Seg Neutrophils # 11.6 H (1.8-7.7) K/mm3 Sodium 138 (137-145) mmol/L Potassium 3.5 L (3.6-5.0) mmol/L Chloride 97.0 L (98-107) mmol/L Carbon Dioxide 21 L (22-30) mmol/L Anion Gap 24 mmol/L BUN 13 (7-17) mg/dL Creatinine 1.2 (0.6-1.2) mg/dL Estimated GFR > 60 ml/min BUN/Creatinine Ratio 11 % Glucose 146 H (65-100) mg/dL Calcium 11.0 H (8.4-10.2) mg/dL Total Bilirubin 1.00 (0.1-1.2) mg/dL AST 13 (5-40) units/L ALT 12 (7-56) units/L Alkaline Phosphatase 64 (35-129) units/L Total Protein 8.7 H (6.3-8.2) g/dL Albumin 5.2 H (3.9-5) g/dL Albumin/Globulin Ratio 1.5 % Lipase 23 (13-60) units/L HCG, Qual Negative (Negative) Urine Color (Yellow) Urine Turbidity (Clear) Urine pH (5.0-7.0) Ur Specific [place] (1.003-1.030) Urine Protein (Negative) mg/dL Urine Glucose (UA) (Negative) mg/dL Urine Ketones (Negative) mg/dL Urine Blood (Negative) Urine Nitrite (Negative) Urine Bilirubin (Negative) Urine Urobilinogen (<2.0) mg/dL Ur Leukocyte Esterase (Negative) Urine WBC (Auto) (0.0-6.0) /HPF Urine RBC (Auto) (0.0-6.0) /HPF U Epithel Cells (Auto) (0-13.0) /HPF Urine Bacteria (Auto) (Negative) /HPF Urine WBC Clumps /HPF Urine Mucus /HPF Urine Yeast (Budding) /HPF 04/19/21 Range/Units Unknown WBC (4.5-11.0) K/mm3 RBC (3.65-5.03) M/mm3 Hgb (10.1-14.3) gm/dl Hct (30.3-42.9) % MCV (79-97) fl MCH (28-32) pg MCHC (30-34) % RDW (13.2-15.2) % Plt Count (140-440) K/mm3 Lymph % (Auto) (13.4-35.0) % [place] % (Auto) (0.0-7.3) % Eos % (Auto) (0.0-4.3) % Baso % (Auto) (0.0-1.8) % Lymph # (Auto) (1.2-5.4) K/mm3 [place] # (Auto) (0.0-0.8) K/mm3 Eos # (Auto) (0.0-0.4) K/mm3 Baso # (Auto) (0.0-0.1) K/mm3 Seg Neutrophils % (40.0-70.0) % Seg Neutrophils # (1.8-7.7) K/mm3 Sodium (137-145) mmol/L Potassium (3.6-5.0) mmol/L Chloride (98-107) mmol/L Carbon Dioxide (22-30) mmol/L Anion Gap mmol/L BUN (7-17) mg/dL Creatinine (0.6-1.2) mg/dL Estimated GFR ml/min BUN/Creatinine Ratio % Glucose (65-100) mg/dL Calcium (8.4-10.2) mg/dL Total Bilirubin (0.1-1.2) mg/dL AST (5-40) units/L ALT (7-56) units/L Alkaline Phosphatase (35-129) units/L Total Protein (6.3-8.2) g/dL Albumin (3.9-5) g/dL Albumin/Globulin Ratio % Lipase (13-60) units/L HCG, Qual (Negative) Urine Color Yellow (Yellow) Urine Turbidity Turbid (Clear) Urine pH 5.0 (5.0-7.0) Ur Specific [place] 1.035 H (1.003-1.030) Urine Protein 100 mg/dl (Negative) mg/dL Urine Glucose (UA) Neg (Negative) mg/dL Urine Ketones 20 (Negative) mg/dL Urine Blood Mod (Negative) Urine Nitrite Neg (Negative) Urine Bilirubin Neg (Negative) Urine Urobilinogen < 2.0 (<2.0) mg/dL Ur Leukocyte Esterase Neg (Negative) Urine WBC (Auto) 89.0 H (0.0-6.0) /HPF Urine RBC (Auto) 10.0 (0.0-6.0) /HPF U Epithel Cells (Auto) 13.0 (0-13.0) /HPF Urine Bacteria (Auto) 3+ (Negative) /HPF Urine WBC Clumps 2+ /HPF Urine Mucus 3+ /HPF Urine Yeast (Budding) 3+ /HPF - Radiology Data Radiology results: report reviewed CT abdomen pelvis w con INDICATION / CLINICAL INFORMATION: PAIN, N/V, HX OF PANCREATITIS, OVARIAN CA. TECHNIQUE: Axial CT images were obtained through the abdomen and pelvis after 80 cc of Omnipaque [address] scans at this location are performed using CT dose reduction for ALARA by means of automated exposure control. COMPARISON: CT dated 10/19/2020. FINDINGS: LOWER CHEST: No significant abnormality LIVER: Fatty infiltration of the liver. No focal lesion. GALLBLADDER/BILIARY TREE: Cholecystectomy. PANCREAS: No significant abnormality. No acute inflammation. SPLEEN: No significant abnormality ADRENALS: No significant abnormality KIDNEYS / URETER: No significant abnormality URINARY BLADDER: No significant abnormality REPRODUCTIVE ORGANS: Uterus is absent. 3 cm cystic structure is present within the left adnexa. This is decreased in size from prior study from 10/19/2020; previously measured 3.6 cm. STOMACH / BOWEL: Small bowel is normal in caliber. The colon is unremarkable. The appendix is normal in caliber. LYMPH NODES: No significant adenopathy. VASCULATURE: No significant abnormality. OTHER: No free air, free fluid, or focal fluid collection is identified. SKELETAL SYSTEM: No acute osseous findings. IMPRESSION: 1. No acute abnormality. No evidence of bowel obstruction or localized inflammation. 2. Decrease in size of left adnexal cyst. 3. Other chronic and incidental findings as above. - Medical Decision Making As per [place] prescription monitoring site patient was prescribed a 30-day supp ly of morphine IR 15 mg on 03/31/2021 (120 tabs) 03/31/2021 03/31/2021 3 Morphine Sulfate Ir 15 Mg Tab 120.00 30 DAY [facility] [id number] [facility] ([id number]) 0 60.00 MME Comm Ins [place] 03/28/2021 03/28/2021 2 Oxycodone-Acetaminophen 5-325 15.00 4 DAY Ni Mos [id number] [facility] ([id number]) 0 28.13 MME Medicaid [place] Patient states that he was originally placed on morphine because oxycodone was too expensive. Pt recently got insurance therefore Her doctor prescribed oxycodone. Patient states that she flushed the rest of her morphine down the toilet. After flushing her medicine down the toilet that she realized that every pharmacy that she checked did not have any oxycodone available. She also states that they did not have most narcotic pain medication in stock. Patient states that her pain and nausea had decreased with ED treatment which included multiple doses of Dilaudid, Zofran, Reglan, Benadryl, and IV fluids. She feels better. ED work-up shows leukocytosis with UTI. CT abdomen pelvis without acute findings. Patient treated with IV Rocephin. Patient offered admission due to concern of ability for pain control as well as nausea and vomiting management. Patient also has a narcotic dependence and at risk for withdrawal symptoms. Patient declined admission at this time and will be prescribed antibiotics and outpatient follow-up. She is scheduled for port placement today. She states she already has Phenergan and Zofran at home. pt tolerating fluids prior to d/c Critical Care Time: No Critical care attestation.: If time is entered above; I have spent that time in minutes in the direct care of this critically ill patient, excluding procedure time. ED Disposition Clinical Impression: UTI (urinary tract infection), Dehydration, Ovarian cancer, Chemotherapy induced nausea and vomiting, Narcotic dependence, Chronic pain Disposition: HOME / SELF CARE / HOMELESS Is pt being admited?: No Condition: Stable Instructions: Nausea and Vomiting, Adult, [id number], Urinary Tract Infect ion, Adult, Chronic Pain, Adult, Dehydration, Adult Additional Instructions: Take the medication as prescribed. Follow-up with your doctor. Return if symptoms worsen as indicated by your discharge instructions. Prescriptions: cefUROXime [Ceftin] 500 mg PO Q12H 7 Days Referrals: PRIMARY CARE, [Primary Care Provider] - 2-3 Days
[2021-04-19] MEDS ORDERED: FAMOTIDINE 20 MG/2 ML INJ IV ONE (01:32)
[2021-04-19 01:58] LABS: Basophils % (Auto) 0.2 % (0.0-1.8); Eosinophils % (Auto) 0.1 % (0.0-4.3); Hemoglobin 15.1 gm/dl (10.1-14.3); Lymphocytes # (Auto) 2.1 K/mm3 (1.2-5.4); Lymphocytes % (Auto) 14.7 % (13.4-35.0); Mean Corpuscular HGB Conc 34 % (30-34); Mean Corpuscular Volume 86 fl (79-97); Monocytes # (Auto) 0.6 K/mm3 (0.0-0.8); Monocytes % (Auto) 4.2 % (0.0-7.3); Platelet Count 366 K/mm3 (140-440); Red Blood Count 5.14 M/mm3 (3.65-5.03); Red Cell Distribution Width 13.4 % (13.2-15.2)
[2021-04-19 02:15] LABS: Alanine Aminotransferase 12 units/L (7-56); Albumin 5.2 g/dL (3.9-5); BUN/Creatinine Ratio 11; Blood Urea Nitrogen 13 mg/dL (7-17); Hemolysis Index 10
--- NOTE | 2021-04-19 03:44 | Cat Scan Report ---
CT abdomen pelvis w con INDICATION / CLINICAL INFORMATION: PAIN, N/V, HX OF PANCREATITIS, OVARIAN CA. TECHNIQUE: Axial CT images were obtained through the abdomen and pelvis after 80 cc of Omnipaque [address] scans at this location are performed using CT dose reduction for ALARA by means of automated exposure control. COMPARISON: CT dated 10/19/2020. FINDINGS: LOWER CHEST: No significant abnormality LIVER: Fatty infiltration of the liver. No focal lesion. GALLBLADDER/BILIARY TREE: Cholecystectomy. PANCREAS: No significant abnormality. No acute inflammation. SPLEEN: No significant abnormality ADRENALS: No significant abnormality KIDNEYS / URETER: No significant abnormality URINARY BLADDER: No significant abnormality REPRODUCTIVE ORGANS: Uterus is absent. 3 cm cystic structure is present within the left adnexa. This is decreased in size from prior study from 10/19/2020; previously measured 3.6 cm. STOMACH / BOWEL: Small bowel is normal in caliber. The colon is unremarkable. The appendix is normal in caliber. LYMPH NODES: No significant adenopathy. VASCULATURE: No significant abnormality. OTHER: No free air, free fluid, or focal fluid collection is identified. SKELETAL SYSTEM: No acute osseous findings. IMPRESSION: 1. No acute abnormality. No evidence of bowel obstruction or localized inflammation. 2. Decrease in size of left adnexal cyst. 3. Other chronic and incidental findings as above. Signer Name: Davidson Finch MD Signed: 04/19/2021 3:40 AM Workstation Name: [id number]
[2021-04-19 04:23] LABS: Bacteria,Urine 3+ /HPF (Negative); Bilirubin,Urine NEG (Negative); Blood,Urine MOD (Negative); Color,Urine Yellow (Yellow); Mucus,Urine 3+ /HPF; Urobilinogen,Urine < 2.0 mg/dL (<2.0)
[2021-04-19] MEDS ORDERED: cefTRIAXone/NS 1 GM/50 ML 1 GM/50 ML BAG IV ONE (04:42)
[2021-04-19 07:10] VITALS: BP 130/80
== END 2021-04-19 06:10 | disposition home or self-care (01) ==
LOC: ED 23:53
DX: N39.0 Urinary tract infection, site not specified (principal); G89.29 Other chronic pain; E86.0 Dehydration; C56.9 Malignant neoplasm of unspecified ovary; T45.1X5A Adverse effect of antineoplastic and immunosuppressive drugs, initial encounter; F19.20 Other psychoactive substance dependence, uncomplicated
CPT/HCPCS: 36415; 36569; 74177; 80053; 81001; 83690; 84703; 85025; 87086; 96361; 96365; 96375; 96376; 99284; J0696; J1170; J1200; J2405; J2765; J3490; J7030; Q9967; Q0162

== ENCOUNTER 2021-06-01 11:53 | Emergency (ER) | payer MEDICAID ==
[2021-06-01 12:56] LABS: Basophils # (Auto) 0.1 K/mm3 (0.0-0.1); Basophils % (Auto) 0.7 % (0.0-1.8); Eosinophils # (Auto) 0.1 K/mm3 (0.0-0.4); Eosinophils % (Auto) 1.1 % (0.0-4.3); Hematocrit 41.5 % (30.3-42.9); Hemoglobin 13.7 gm/dl (10.1-14.3); Lymphocytes # (Auto) 1.9 K/mm3 (1.2-5.4); Lymphocytes % (Auto) 23.4 % (13.4-35.0); Mean Corpuscular HGB Conc 33 % (30-34); Mean Corpuscular Volume 88 fl (79-97); Monocytes # (Auto) 0.4 K/mm3 (0.0-0.8); Monocytes % (Auto) 5.1 % (0.0-7.3); Platelet Count 322 K/mm3 (140-440); Red Blood Count 4.74 M/mm3 (3.65-5.03)
[2021-06-01 13:10] LABS: Alanine Aminotransferase 21 units/L (7-56); Albumin 4.6 g/dL (3.9-5); BUN/Creatinine Ratio 18; Blood Urea Nitrogen 16 mg/dL (7-17); Calcium 9.1 mg/dL (8.4-10.2); Hemolysis Index 10
--- NOTE | 2021-06-01 14:12 | Emergency Department Report ---
ED General Adult HPI - General Chief complaint: Abdominal Pain Stated complaint: PANCREATITIS FLARE Time Seen by Provider: 06/01/21 12:15 Source: EMS Mode of arrival: Stretcher Limitations: No Limitations - History of Present Illness Initial comments: Patient presents with complaints of upper abdominal pain, sharp, radiating to the back, 12/06, worsened by eating, or relieved by anything. Endorses nausea, non bloody non bilious vomiting. Last BM was today and diarrheal. Has diarrhea chronically. Endorses flatulence. Denies dysuria, frequency, urgency, vaginal bleeding, discharge. Patient states she is s/p cholecystectomy Severity scale (0 -10): 10 - Related Data Previous Rx's Medication Instructions Recorded Last Taken Type Ondansetron [Zofran Odt] 4 mg PO Q8HR PRN #20 tab.rapdis 12/08/19 Unknown Rx Promethazine [Phenergan TAB] 25 mg PO Q6HR PRN #20 tab 12/08/19 Unknown Rx Dicyclomine [Bentyl] 20 mg PO QID PRN #20 tablet 12/30/19 Unknown Rx Ondansetron [Zofran Odt] 4 mg PO Q8HR PRN #20 tab.rapdis 12/30/19 Unknown Rx Tiny Root [Tiny] 250 mg PO QID PRN #30 capsule 10/19/20 Unknown Rx Metoclopramide [Reglan] 10 mg PO QID PRN #30 tablet 10/19/20 Unknown Rx Morphine Sulfate [Morphine Sulfate 7.5 mg PO Q6HR PRN #10 tablet 10/19/20 Unknown Rx IR] Potassium Chloride [K-Dur] 20 meq PO BID #20 tab 10/19/20 Unknown Rx Promethazine [Phenergan SUPPOS] 50 mg [place] Q6H PRN #10 supp.rect 10/19/20 Unknown Rx cefUROXime [Ceftin] 500 mg PO Q12H 7 Days 04/19/21 Unknown Rx Metoclopramide [Reglan ORAL LIQ] 10 mg PO Q6H PRN #30 tab 06/01/21 Unknown Rx Allergies Allergy/AdvReac Type Severity Reaction Status Date / Time acetaminophen [From Fioricet] Allergy Unknown Verified 06/01/21 12:11 butalbital [From Fioricet] Allergy Unknown Verified 06/01/21 12:11 caffeine [From Fioricet] Allergy Unknown Verified 06/01/21 12:11 ibuprofen Allergy Unknown Verified 06/01/21 12:11 ketorolac [From Toradol] Allergy Unknown Verified 06/01/21 12:11 prednisone Allergy Unknown Verified 06/01/21 12:11 sumatriptan [From Imitrex] Allergy Unknown Verified 06/01/21 12:11 midazolam [From Versed] AdvReac Hives Verified 06/01/21 12:11 ED Review of Systems ROS: Stated complaint: PANCREATITIS FLARE Other details as noted in HPI Comment: All other systems reviewed and negative Constitutional: denies: chills, fever ED Past Medical Hx - Past Medical History Hx of Cancer: Yes (stage 3 ovarian) Hx Headaches / Migraines: Yes Hx Asthma: Yes Additional medical history: colitis. pancreatitis. ovarian cycts. c-diff (not active) - Surgical History Hx Cholecystectomy: Yes Additional Surgical History: ablasion. partial hysterectomy. tonsils and adnoids removed. right ovarian cyst - Social History Smoking Status: Current Every Day Smoker Substance Use Type: None - Medications Home Medications: Home Medications Medication Instructions Recorded Confirmed Last Taken Type Ondansetron [Zofran Odt] 4 mg PO Q8HR PRN #20 tab.rapdis 12/08/19 Unknown Rx Promethazine [Phenergan TAB] 25 mg PO Q6HR PRN #20 tab 12/08/19 Unknown Rx Dicyclomine [Bentyl] 20 mg PO QID PRN #20 tablet 12/30/19 Unknown Rx Ondansetron [Zofran Odt] 4 mg PO Q8HR PRN #20 tab.rapdis 12/30/19 Unknown Rx Tiny Root [Tiny] 250 mg PO QID PRN #30 capsule 10/19/20 Unknown Rx Metoclopramide [Reglan] 10 mg PO QID PRN #30 tablet 10/19/20 Unknown Rx Morphine Sulfate [Morphine Sulfate 7.5 mg PO Q6HR PRN #10 tablet 10/19/20 Unknown Rx IR] Potassium Chloride [K-Dur] 20 meq PO BID #20 tab 10/19/20 Unknown Rx Promethazine [Phenergan SUPPOS] 50 mg [place] Q6H PRN #10 supp.rect 10/19/20 Unknown Rx cefUROXime [Ceftin] 500 mg PO Q12H 7 Days 04/19/21 Unknown Rx Metoclopramide [Reglan ORAL LIQ] 10 mg PO Q6H PRN #30 tab 06/01/21 Unknown Rx ED Physical Exam - General Limitations: No Limitations General appearance: alert, in no apparent distress - Head Head exam: Present: atraumatic, normocephalic - Eye Eye exam: Present: PERRL, EOMI - ENT ENT exam: Present: mucous membranes moist, other (airway patent) - Neck Neck exam: Present: other (supple; no JVD) - Respiratory Respiratory exam: Present: other (good air entry, nml I:E, CTAB, no use of ARMANDO) - Cardiovascular Cardiovascular Exam: Present: regular rate. Absent: rubs, gallop - GI/Abdominal GI/Abdominal exam: Present: soft, tenderness (in RUQ, LUQ and suprapubic region). Absent: guarding, rebound - Extremities Exam Extremities exam: Present: full ROM. Absent: tenderness - Back Exam Back exam: Present: full ROM. Absent: CVA tenderness (R), CVA tenderness (L) - Neurological Exam Neurological exam: Present: alert, oriented X3, CN II-XII intact - Skin Skin exam: Present: normal color. Absent: rash ED Course Vital Signs 06/01/21 06/01/21 06/01/21 12:10 12:24 12:28 Temperature 100.0 F H 98.8 F Pulse Rate 89 78 74 Respiratory 16 9 L 12 Rate Blood Pressure 124/86 Blood Pressure 145/102 [Right] O2 Sat by Pulse 100 100 100 Oximetry 06/01/21 06/01/21 06/01/21 12:30 12:46 13:00 Temperature Pulse Rate 74 76 77 Respiratory 11 L 14 11 L Rate Blood Pressure 124/86 124/86 125/86 Blood Pressure [Right] O2 Sat by Pulse 99 100 100 Oximetry 06/01/21 06/01/21 06/01/21 13:16 13:30 13:45 Temperature Pulse Rate 81 74 77 Respiratory 11 L 9 L 10 L Rate Blood Pressure 125/86 136/85 136/85 Blood Pressure [Right] O2 Sat by Pulse 100 100 100 Oximetry 06/01/21 06/01/21 06/01/21 14:15 14:42 14:46 Temperature Pulse Rate 83 76 71 Respiratory 15 12 11 L Rate Blood Pressure 136/92 129/79 129/79 Blood Pressure [Right] O2 Sat by Pulse 99 99 100 Oximetry 06/01/21 06/01/21 06/01/21 15:00 15:16 15:30 Temperature Pulse Rate 72 70 74 Respiratory 9 L 6 L 7 L Rate Blood Pressure 136/84 136/84 140/87 Blood Pressure [Right] O2 Sat by Pulse 100 99 99 Oximetry 06/01/21 06/01/21 06/01/21 15:46 16:00 16:24 Temperature Pulse Rate 73 67 Respiratory 13 14 Rate Blood Pressure 140/87 147/85 147/85 Blood Pressure [Right] O2 Sat by Pulse 100 100 Oximetry 06/01/21 16:35 Temperature 98.5 F Pulse Rate Respiratory Rate Blood Pressure Blood Pressure [Right] O2 Sat by Pulse Oximetry ED Medical Decision Making - Lab Data Result diagrams: 06/01/21 12:32 06/01/21 12:32 Laboratory Tests 06/01/21 06/01/21 06/01/21 12:32 12:32 12:32 WBC 8.3 RBC 4.74 Hgb 13.7 Hct 41.5 MCV 88 MCH 29 MCHC 33 RDW 14.0 Plt Count 322 Lymph % (Auto) 23.4 Meeker % (Auto) 5.1 Eos % (Auto) 1.1 Baso % (Auto) 0.7 Lymph # (Auto) 1.9 Meeker # (Auto) 0.4 Eos # (Auto) 0.1 Baso # (Auto) 0.1 Seg Neutrophils % 69.7 Seg Neutrophils # 5.8 Sodium Potassium Chloride Carbon Dioxide Anion Gap BUN Creatinine Estimated GFR BUN/Creatinine Ratio Glucose Calcium Total Bilirubin AST ALT Alkaline Phosphatase Total Protein Albumin Albumin/Globulin Ratio Lipase 34 HCG, Qual Negative Urine Color Urine Turbidity Urine pH Ur Specific Raymond Urine Protein Urine Glucose (UA) Urine Ketones Urine Blood Urine Nitrite Ur Reducing Substances Urine Bilirubin Urine Ictotest Urine Urobilinogen Ur Leukocyte Esterase Urine WBC (Auto) Urine RBC (Auto) U Epithel Cells (Auto) Amorphous Crystals Urine Mucus 06/01/21 06/01/21 12:32 Unknown WBC RBC Hgb Hct MCV MCH MCHC RDW Plt Count Lymph % (Auto) Meeker % (Auto) Eos % (Auto) Baso % (Auto) Lymph # (Auto) Meeker # (Auto) Eos # (Auto) Baso # (Auto) Seg Neutrophils % Seg Neutrophils # Sodium 143 Potassium 3.9 Chloride 106.3 Carbon Dioxide 24 Anion Gap 17 BUN 16 Creatinine 0.9 Estimated GFR > 60 BUN/Creatinine Ratio 18 Glucose 113 H Calcium 9.1 Total Bilirubin 0.80 AST 15 ALT 21 Alkaline Phosphatase 51 Total Protein 7.9 Albumin 4.6 Albumin/Globulin Ratio 1.4 Lipase HCG, Qual Urine Color Yellow Urine Turbidity Turbid Urine pH 5.0 Ur Specific Raymond 1.028 Urine Protein <15 mg/dl Urine Glucose (UA) Neg Urine Ketones Neg Urine Blood Mod Urine Nitrite Neg Ur Reducing Substances Not Reportable Urine Bilirubin Neg Urine Ictotest Not Reportable Urine Urobilinogen < 2.0 Ur Leukocyte Esterase Neg Urine WBC (Auto) 2.0 Urine RBC (Auto) 20.0 U Epithel Cells (Auto) 69.0 H Amorphous Crystals 3+ Urine Mucus 3+ CT abd/pelvis: no abnormality per rad - Radiology Data Radiology results: report reviewed (CT abd/pelvis: no acute abnormality) - Medical Decision Making Diff dz: possibly 2/2 IBS vs chronic pancreatitis. No signs of acute pancreatitis, appendicitis, SBO or other acute surgical abdomen @ this time. Received dilaudid 1 mg IV x 1, zofran 4 mg IV x 1. Pain and nausea resolved. Critical care attestation.: If time is entered above; I have spent that time in minutes in the direct care of this critically ill patient, excluding procedure time. ED Disposition Clinical Impression: Abdominal pain Disposition: 01 HOME / SELF CARE / HOMELESS Is pt being admited?: No Does the pt Need Aspirin: No Condition: Stable Instructions: Abdominal Pain, Adult, [id number], Abdominal Pain (ED) Additional Instructions: Return to the ER if your symptoms worsen. Prescriptions: Metoclopramide [Reglan ORAL LIQ] 10 mg PO Q6H PRN #30 tab PRN Reason: Nausea And Vomiting Referrals: [facility] [Other] - 3-5 Days Time of Disposition: 15:30
[2021-06-01] MEDS: ONDANSETRON 4 MG/2 ML INJ IV ONE (14:15)
[2021-06-01] MEDS: HYDROmorphone 1 MG/1 ML INJ IV ONE (14:15)
[2021-06-01 15:02] LABS: Amorphous Crystals,Urine 3+; Bilirubin,Urine NEG (Negative); Blood,Urine MOD (Negative); Color,Urine Yellow (Yellow); Mucus,Urine 3+ /HPF; Protein,Urine <15 mg/dL mg/dL (Negative); Urobilinogen,Urine < 2.0 mg/dL (<2.0)
--- NOTE | 2021-06-01 15:05 | Cat Scan Report ---
CT ABDOMEN AND PELVIS WITH CONTRAST INDICATION / CLINICAL INFORMATION: generalized abdominal pain x 2 days . TECHNIQUE: Axial CT images were obtained through the abdomen and pelvis after an unspecified amount and type of IV contrast. All CT scans at this location are performed using CT dose reduction for ALARA by means of automated exposure control. COMPARISON: CT abdomen and pelvis with contrast dated 04/19/2021. FINDINGS: LOWER CHEST: No significant abnormality. LIVER: There is generalized steatosis without other significant abnormalities. GALLBLADDER: Surgically absent. BILE DUCTS: No significant abnormality. PANCREAS: No significant abnormality. SPLEEN: No significant abnormality. ADRENALS: No significant abnormality. RIGHT KIDNEY/URETER: No significant abnormality. LEFT KIDNEY/URETER: No significant abnormality. STOMACH/SMALL BOWEL: No significant abnormality. COLON: No significant abnormality. APPENDIX: No significant abnormality. PERITONEUM: No free fluid. No free air. No fluid collection. LYMPH NODES: No significant adenopathy. VASCULATURE: No significant abnormality. URINARY BLADDER: No significant abnormality. REPRODUCTIVE ORGANS: Prior hysterectomy. The previously seen left ovarian/adnexal cyst has resolved. No new significant abnormality. ADDITIONAL FINDINGS: None. BONES: No significant abnormality IMPRESSION: 1. No acute findings to explain the patient's abdominal pain. 2. Additional findings as above. Signer Name: Alex Alvarado MD Signed: 06/01/2021 3:00 PM Workstation Name: [id number]
[2021-06-01 16:35] VITALS: BP 147/85
== END 2021-06-01 16:35 | disposition home or self-care (01) ==
LOC: ED 11:53
DX: R10.9 Unspecified abdominal pain (principal); Z88.5 Allergy status to narcotic agent; Z88.6 Allergy status to analgesic agent; F17.200 Nicotine dependence, unspecified, uncomplicated; Z88.8 Allergy status to other drugs, medicaments and biological substances; J45.909 Unspecified asthma, uncomplicated
CPT/HCPCS: 36415; 74177; 80053; 81001; 83690; 84703; 85025; 96374; 96375; 99284; J1170; J2405; Q9967

== ENCOUNTER 2021-08-17 11:58 | Emergency (ER) | payer MEDICAID ==
[2021-08-17 13:17] LABS: Alanine Aminotransferase 28 units/L (7-56); BUN/Creatinine Ratio 16; Blood Urea Nitrogen 14 mg/dL (7-17); Calcium 10.4 mg/dL (8.4-10.2); Hemolysis Index 3
[2021-08-17 14:09] LABS: Basophils % (Auto) 0.3 % (0.0-1.8); Eosinophils # (Auto) 0.1 K/mm3 (0.0-0.4); Eosinophils % (Auto) 1.5 % (0.0-4.3); Hematocrit 44.2 % (30.3-42.9); Hemoglobin 14.8 gm/dl (10.1-14.3); Lymphocytes # (Auto) 2.6 K/mm3 (1.2-5.4); Lymphocytes % (Auto) 30.6 % (13.4-35.0); Mean Corpuscular HGB Conc 33 % (30-34); Mean Corpuscular Volume 88 fl (79-97); Monocytes # (Auto) 0.5 K/mm3 (0.0-0.8); Monocytes % (Auto) 5.4 % (0.0-7.3); Platelet Count 320 K/mm3 (140-440); Red Blood Count 5.01 M/mm3 (3.65-5.03); Red Cell Distribution Width 13.8 % (13.2-15.2)
[2021-08-17] MEDS ORDERED: SODIUM CHLORIDE 0.9% 1000 ML 1,000 ML IV ONE (15:52)
[2021-08-17] MEDS ORDERED: MORPHINE 4 MG/1 ML INJ IV ONE ×2 (15:52→18:00)
[2021-08-17] MEDS ORDERED: ONDANSETRON 4 MG/2 ML INJ IV ONE (15:52)
--- NOTE | 2021-08-17 15:55 | Emergency Department Report ---
ED Abdominal Pain HPI - General Chief Complaint: Abdominal Pain Stated Complaint: VOMITING/BODY PAIN Time Seen by Provider: 08/17/21 15:48 Source: patient Mode of arrival: Ambulatory Limitations: No Limitations - History of Present Illness Initial Comments: Patient is a 36 years old female with history of ulcerative colitis and chronic pancreatitis. Patient presented to the ER complaining of abdominal pain started in the epigastric area and to the left flank area since yesterday. Patient stated that she had colonoscopy yesterday. Patient denied any fever or chills patient stated that she is having nausea vomiting and diarrhea. MD Complaint: abdominal pain, flank pain -: Last night Location: epigastric, suprapubic, L flank Radiation: none Severity: moderate Severity scale (0 -10): 5 Associated Symptoms: nausea, vomiting - Related Data Previous Rx's Medication Instructions Recorded Last Taken Type Ondansetron [Zofran Odt] 4 mg PO Q8HR PRN #20 tab.rapdis 12/08/19 Unknown Rx Promethazine [Phenergan TAB] 25 mg PO Q6HR PRN #20 tab 12/08/19 Unknown Rx Dicyclomine [Bentyl] 20 mg PO QID PRN #20 tablet 12/30/19 Unknown Rx Ondansetron [Zofran Odt] 4 mg PO Q8HR PRN #20 tab.rapdis 12/30/19 Unknown Rx Tiny Root [Tiny] 250 mg PO QID PRN #30 capsule 10/19/20 Unknown Rx Metoclopramide [Reglan] 10 mg PO QID PRN #30 tablet 10/19/20 Unknown Rx Morphine Sulfate [Morphine Sulfate 7.5 mg PO Q6HR PRN #10 tablet 10/19/20 Unknown Rx IR] Potassium Chloride [K-Dur] 20 meq PO BID #20 tab 10/19/20 Unknown Rx Promethazine [Phenergan SUPPOS] 50 mg [place] Q6H PRN #10 supp.rect 10/19/20 Unknown Rx cefUROXime [Ceftin] 500 mg PO Q12H 7 Days 04/19/21 Unknown Rx Metoclopramide [Reglan ORAL LIQ] 10 mg PO Q6H PRN #30 tab 06/01/21 Unknown Rx Allergies Allergy/AdvReac Type Severity Reaction Status Date / Time acetaminophen [From Fioricet] Allergy Unknown Verified 06/01/21 12:11 butalbital [From Fioricet] Allergy Unknown Verified 06/01/21 12:11 caffeine [From Fioricet] Allergy Unknown Verified 06/01/21 12:11 ibuprofen Allergy Unknown Verified 06/01/21 12:11 ketorolac [From Toradol] Allergy Unknown Verified 06/01/21 12:11 prednisone Allergy Unknown Verified 06/01/21 12:11 sumatriptan [From Imitrex] Allergy Unknown Verified 06/01/21 12:11 midazolam [From Versed] AdvReac Hives Verified 06/01/21 12:11 ED Review of Systems ROS: Stated complaint: VOMITING/BODY PAIN Other details as noted in HPI Comment: All other systems reviewed and negative Constitutional: denies: chills, fever Respiratory: denies: cough, orthopnea, shortness of breath, SOB with exertion, SOB at rest Cardiovascular: denies: chest pain, palpitations, dyspnea on exertion Gastrointestinal: abdominal pain, nausea. denies: vomiting, diarrhea, constipation, hematemesis, hematochezia Genitourinary: urgency Musculoskeletal: back pain Neurological: denies: headache, weakness, numbness, paresthesias, confusion ED Past Medical Hx - Past Medical History Hx Headaches / Migraines: Yes Hx Asthma: Yes Additional medical history: colitis. pancreatitis. ovarian cycts. c-diff (not active) - Surgical History Hx Cholecystectomy: Yes Additional Surgical History: ablasion. partial hysterectomy. tonsils and adnoids removed. right ovarian cyst - Social History Smoking Status: Never Smoker - Medications Home Medications: Home Medications Medication Instructions Recorded Confirmed Last Taken Type Ondansetron [Zofran Odt] 4 mg PO Q8HR PRN #20 tab.rapdis 12/08/19 Unknown Rx Promethazine [Phenergan TAB] 25 mg PO Q6HR PRN #20 tab 12/08/19 Unknown Rx Dicyclomine [Bentyl] 20 mg PO QID PRN #20 tablet 12/30/19 Unknown Rx Ondansetron [Zofran Odt] 4 mg PO Q8HR PRN #20 tab.rapdis 12/30/19 Unknown Rx Tiny Root [Tiny] 250 mg PO QID PRN #30 capsule 10/19/20 Unknown Rx Metoclopramide [Reglan] 10 mg PO QID PRN #30 tablet 10/19/20 Unknown Rx Morphine Sulfate [Morphine Sulfate 7.5 mg PO Q6HR PRN #10 tablet 10/19/20 Unknown Rx IR] Potassium Chloride [K-Dur] 20 meq PO BID #20 tab 10/19/20 Unknown Rx Promethazine [Phenergan SUPPOS] 50 mg [place] Q6H PRN #10 supp.rect 10/19/20 Unknown Rx cefUROXime [Ceftin] 500 mg PO Q12H 7 Days 04/19/21 Unknown Rx Metoclopramide [Reglan ORAL LIQ] 10 mg PO Q6H PRN #30 tab 06/01/21 Unknown Rx ED Physical Exam - General Limitations: No Limitations General appearance: alert, in no apparent distress - Head Head exam: Present: atraumatic, normocephalic, normal inspection - Eye Eye exam: Present: normal appearance - ENT ENT exam: Present: normal exam, normal orophraynx, mucous membranes moist - Neck Neck exam: Present: normal inspection, full ROM. Absent: tenderness, meningismus - Respiratory Respiratory exam: Present: normal lung sounds bilaterally - Cardiovascular Cardiovascular Exam: Present: regular rate, normal rhythm, normal heart sounds - GI/Abdominal GI/Abdominal exam: Present: soft, normal bowel sounds. Absent: distended, tenderness, guarding, rebound, rigid, organomegaly, mass, bruit, pulsatile mass, hernia - Extremities Exam Extremities exam: Present: normal inspection, full ROM, normal capillary refill - Back Exam Back exam: Present: normal inspection, full ROM, CVA tenderness (L). Absent: CVA tenderness (R) - Neurological Exam Neurological exam: Present: alert, oriented X3, CN II-XII intact, normal gait, reflexes normal. Absent: motor sensory deficit - Psychiatric Psychiatric exam: Present: normal mood - Skin Skin exam: Present: warm, intact, normal color ED Course Vital Signs 08/17/21 12:10 Temperature 98.6 F Pulse Rate 92 H Respiratory 14 Rate Blood Pressure 145/88 O2 Sat by Pulse 100 Oximetry ED Medical Decision Making - Lab Data Result diagrams: 08/17/21 12:24 08/17/21 12:24 - Radiology Data Radiology results: report reviewed - Medical Decision Making Patient is a 36 years old female with history of ulcerative colitis and chronic pancreatitis. Patient presented to the ER complaining of abdominal pain started in the epigastric area and to the left flank area since yesterday. Patient stated that she had colonoscopy yesterday. Patient denied any fever or chills patient stated that she is having nausea vomiting and diarrhea. Patient received morphine, Zofran and normal saline. Labs reviewed and is unremarkable. CT abdomen and pelvis showed evidence of enteritis. No complication from recent colonoscopy. Patient given prescription for Bentyl and Zofran and advised to follow-up with her primary doctor in the next 2 to 3 days and to return to the ER she develop any new symptoms. Critical care attestation.: If time is entered above; I have spent that time in minutes in the direct care of this critically ill patient, excluding procedure time. ED Disposition Clinical Impression: Acute abdominal pain, Enteritis Disposition: HOME / SELF CARE / HOMELESS Is pt being admited?: No Condition: Stable Instructions: Abdominal Pain (ED), Abdominal Pain, Adult Referrals: PRIMARY CARE, [Referring] - 3-5 Days
[2021-08-17 18:16] LABS: Bilirubin,Urine NEG (Negative); Blood,Urine MOD (Negative); Color,Urine Yellow (Yellow); Protein,Urine <15 mg/dL mg/dL (Negative); Urobilinogen,Urine < 2.0 mg/dL (<2.0)
[2021-08-17 18:33] LABS: Mucus,Urine 2+ /HPF
--- NOTE | 2021-08-17 20:21 | Cat Scan Report ---
CT abdomen pelvis w con INDICATION / CLINICAL INFORMATION: abdominal pain. TECHNIQUE: Axial CT imaging of abdomen and pelvis was obtained with 100 mL Omnipaque 300 IV contrast. Coronal an d sagittal reformatted imaging obtained and reviewed. All CT scans at this location are performed us ing CT dose reduction for ALARA by means of automated exposure control. COMPARISON: Prior CT abdomen/pelvis 06/01/2021. FINDINGS: CT abdomen with contrast demonstrates grossly normal appearance of the liver, spleen, pancreas, kidne ys, and adrenal glands. Prior cholecystectomy. There is mild biliary dilatation most likely related t o previous cholecystectomy. CT pelvis with contrast does not demonstrate any mass or free fluid. A normal appendix is present in the right lower quadrant. Bilateral adnexa are unremarkable. GI track is slightly abnormal. There are fluid-filled slightly enhancing loops of nondilated small kena wel throughout the abdomen and pelvis. The colon is grossly unremarkable. No evidence of colonic perf oration. No free air or free fluid. The visualized lung bases are clear. No acute osseous abnormality. IMPRESSION: 1. Abnormal appearance of the small bowel. There are multiple nondilated fluid-filled loops of small bowel present throughout the abdomen and pelvis. The appearance is most suggestive of enteritis. Plea se correlate with clinical symptoms and presentation. 2. No evidence of complication related to recent colonoscopy. Signer Name: Neelam Lau MD Signed: 08/17/2021 8:17 PM Workstation Name: [id number]
[2021-08-17 21:03] VITALS: BP 148/86
== END 2021-08-17 21:03 | disposition home or self-care (01) ==
LOC: ED 11:58
DX: R10.9 Unspecified abdominal pain (principal); K52.9 Noninfective gastroenteritis and colitis, unspecified; J45.909 Unspecified asthma, uncomplicated; Z88.6 Allergy status to analgesic agent; Z88.8 Allergy status to other drugs, medicaments and biological substances
CPT/HCPCS: 36415; 74177; 80053; 81001; 83690; 85025; 96361; 96374; 96375; 96376; 99284; J2270; J2405; J7030; Q9967